=== PATIENT | male | born 1945 | race Caucasian/White ===

== ENCOUNTER 2021-01-01 18:16 | Inpatient (IN) | payer MEDICARE ==
[~2021-01-01] VITALS: Ht 177.8 cm; Wt 58.6 kg
[2021-01-01 19:51] LABS: BASOPHILS # (AUTO) 0.1 X10'3 (0-0.2); BASOPHILS % (AUTO) 0.7 % (0-1); EOSINOPHILS # (AUTO) 0.3 X10'3 (0-0.9); EOSINOPHILS % (AUTO) 3.5 % (0-6); HEMATOCRIT 27.1 % (42.0-52.0); HEMOGLOBIN 9.4 g/dl (14.0-17.9); LYMPHOCYTES # (AUTO) 0.5 X10'3 (1.1-4.8); LYMPHOCYTES % (AUTO) 5.8 % (21-51); MEAN CORPUSCULAR HEMOGLOBIN 30.1 PG (27.0-31.0); MEAN CORPUSCULAR HGB CONC 34.9 g/dL (33.0-36.5); MEAN CORPUSCULAR VOLUME 86.3 FL (78-98); MEAN PLATELET VOLUME 7.7 FL (7.4-10.4); MONOCYTES # (AUTO) 0.7 X10'3 (0-0.9); MONOCYTES % (AUTO) 7.6 % (2-12); NEUTROPHILS # (AUTO) 7.5 X10'3 (1.8-7.7); NEUTROPHILS % (AUTO) 82.4 % (42-75); PLATELET COUNT 362 X10'3 (140-440); RED BLOOD COUNT 3.13 X10'6 (4.70-6.10); RED CELL DISTRIBUTION WIDTH 13.8 % (11.5-14.5); WHITE BLOOD COUNT 9.1 X10'3 (4.5-11.0)
[2021-01-01 19:53] LABS: ALANINE AMINOTRANSFERASE 25 U/L (12-78); ALBUMIN 3.6 G/DL (3.4-5.0); ALBUMIN/GLOBULIN RATIO 0.9 (1.1-1.5); ALKALINE PHOSPHATASE 459 IU/L (46-116); ANION GAP 11 (8-16); ASPARTATE AMINO TRANSFERASE 9 U/L (10-37); BILIRUBIN,TOTAL 0.5 MG/DL (0.1-1.0); BLOOD UREA NITROGEN 90 MG/DL (7-18); BUN/CREATININE RATIO 14.6 (5.4-32.0); CHLORIDE 92 MMOL/L (99-107); CREATININE 6.18 MG/DL (0.60-1.10); GLUCOSE 126 MG/DL (70-104); POTASSIUM 4.9 MMOL/L (3.5-5.1); SODIUM 133 MMOL/L (135-145); TOTAL CARBON DIOXIDE 30.4 MMOL/L (24-32); TOTAL PROTEIN 7.7 G/DL (6.4-8.2); eGFR 9 ML/MIN
[2021-01-01 19:57] LABS: CALCIUM 13.8 MG/DL (8.5-10.1)
[2021-01-01] MEDS ORDERED: normal saline 1000ml 1,000 ML IV ONE ×2 (20:35)
[2021-01-01 20:56] LABS: UA COLLECTION TYPE NON-SPECIFIED
[2021-01-01 20:57] LABS: CLARITY,URINE SLIGHTLY CLOUDY (Clear); COLOR,URINE STRAW (Yellow); GLUCOSE, URINE NEGATIVE (Neg); KETONES,URINE NEGATIVE (Neg); LEUKOCYTE ESTERASE ,URINE NEGATIVE (Neg); NITRITES, URINE NEGATIVE (Neg); OCCULT BLOOD,URINE NEGATIVE (Neg); PH,URINE 7.5 (4.8-8.0); PROTEIN,URINE 30 mg/dl (Neg); UROBILINOGEN,URINE 0.2 E.U/dL (0.2-1.0)
[2021-01-01 21:01] LABS: MUCUS STRANDS FEW /LPF (Neg); SQUAMOUS EPITHELIAL CELL,UR FEW /LPF (FEW)
[2021-01-01 21:02] LABS: AMORPHOUS PHOSPHATES 3+
[2021-01-01 21:03] LABS: RBC,URINE 0-2 /HPF (0-2)
[2021-01-01 21:04] LABS: BACTERIA,URINE FEW /HPF (Neg)
[2021-01-01 23:15] LABS: PHOSPHORUS 5.4 MG/DL (2.3-4.5)
[2021-01-01] MEDS ORDERED: potassium Cl 40MEQ/1/2NS 520ml 520 ML IV PRN ×2 (23:20)
[2021-01-01] MEDS ORDERED: ondansetron/PF 4mg/2ml inj IV PRN (23:20)
[2021-01-01] MEDS ORDERED: acetaminophen 325mg tablet PO PRN (23:20)
[2021-01-01] MEDS ORDERED: potassium Cl 20 mEq SR tablet PO PRN ×2 (23:20)
[2021-01-02] MEDS: normal saline 1000ml 1,000 ML IV SCH ×3 (00:05→20:52)
[2021-01-02 04:26] LABS: BASOPHILS # (AUTO) 0.1 X10'3 (0-0.2); BASOPHILS % (AUTO) 0.9 % (0-1); EOSINOPHILS # (AUTO) 0.4 X10'3 (0-0.9); EOSINOPHILS % (AUTO) 5.6 % (0-6); HEMATOCRIT 24.5 % (42.0-52.0); HEMOGLOBIN 8.4 g/dl (14.0-17.9); LYMPHOCYTES # (AUTO) 0.6 X10'3 (1.1-4.8); MEAN CORPUSCULAR HEMOGLOBIN 29.7 PG (27.0-31.0); MEAN CORPUSCULAR HGB CONC 34.2 g/dL (33.0-36.5); MEAN CORPUSCULAR VOLUME 86.8 FL (78-98); MEAN PLATELET VOLUME 7.5 FL (7.4-10.4); MONOCYTES # (AUTO) 0.7 X10'3 (0-0.9); MONOCYTES % (AUTO) 9.3 % (2-12); NEUTROPHILS % (AUTO) 76.2 % (42-75); PLATELET COUNT 295 X10'3 (140-440); RED BLOOD COUNT 2.82 X10'6 (4.70-6.10); RED CELL DISTRIBUTION WIDTH 13.7 % (11.5-14.5); WHITE BLOOD COUNT 7.8 X10'3 (4.5-11.0)
[2021-01-02 05:04] LABS: ALANINE AMINOTRANSFERASE 19 U/L (12-78); ALBUMIN/GLOBULIN RATIO 0.9 (1.1-1.5); ALKALINE PHOSPHATASE 458 IU/L (46-116); ANION GAP 10 (8-16); ASPARTATE AMINO TRANSFERASE 11 U/L (10-37); BILIRUBIN,TOTAL 0.4 MG/DL (0.1-1.0); BLOOD UREA NITROGEN 86 MG/DL (7-18); BUN/CREATININE RATIO 14.3 (5.4-32.0); CHLORIDE 99 MMOL/L (99-107); GLUCOSE 96 MG/DL (70-104); POTASSIUM 4.3 MMOL/L (3.5-5.1); SODIUM 136 MMOL/L (135-145); TOTAL CARBON DIOXIDE 26.9 MMOL/L (24-32); TOTAL PROTEIN 6.4 G/DL (6.4-8.2); eGFR 9 ML/MIN
[2021-01-02 05:09] LABS: CALCIUM 12.4 MG/DL (8.5-10.1)
[2021-01-02] MEDS: heparin, porcine 5000 units/ml vial SQ SCH ×2 (08:00→20:47)
[2021-01-02] MEDS ORDERED: PERFLUTREN PROTEIN-A MICROSPHR (Optison) 0.22 MG/ML 3ML VIAL IV ONE (08:00)
[2021-01-02] MEDS: K and/or MAG REPLACEMENT MC SCH ×2 (08:00→20:00)
[2021-01-02] MEDS ORDERED: magnesium 4gm in 100ml NS 100 ML IV PRN (09:20)
[2021-01-02] MEDS ORDERED: magnesium Cl slow-release 64mg tablet PO PRN (09:20)
[2021-01-02] MEDS ORDERED: NO HOME MEDS (11:51)
--- NOTE | 2021-01-02 14:59 | NUR ---
patient arrived from ED to PCU at 1 pm on a gurney accompanied by a staff nurse. patient was alert and oriented x 4 with stable virtal signs. patient has a right PIV on AC , flushed and patent. patient has a arteaga for a retention, clear yellow urine is draining , patient is on tele number 2 sinus rythm. patient was oriented to room and equipment , patient demonstrate how to use a call greer
--- NOTE | 2021-01-02 16:57 | NUR ---
Malnutrition consult: Pt reports 2-13 lb wt loss with decreased appetite per malnutrition risk screen with RN. Current documented wt is not scaled and pt with no wt hx in EMR. Per MD documentation pt usually very active however has had decreased energy over the last month with reported 4 lb wt loss per H&P. If pt truly lost this wt this would be non-significant wt loss of 3% in one month. Pt on a vegetarian diet documented with 50-75% PO intake first meal. Per ED report pt appears well developed well nourished and no edema. Pt currently lacks a minimum of two criteria for malnutrition. Will continue to follow and monitor qualifying criteria. Addendum: 01/02/21 at 1658 by Maria Del Carmen Hern[address]es RD Amended: Links added.
[2021-01-02 18:00] VITALS: BP 149/68
[2021-01-02] MEDS ORDERED: K and/or MAG REPLACEMENT MC SCH (20:00)
[2021-01-02 22:00] VITALS: BP 129/57
[2021-01-03 01:00] VITALS: BP 142/65
[2021-01-03] MEDS: normal saline 1000ml 1,000 ML IV SCH ×4 (03:01→19:49)
[2021-01-03 06:00] VITALS: BP 134/69
--- NOTE | 2021-01-03 06:35 | NUR ---
Problems reprioritized. Patient report given, questions answered & plan of care reviewed with ANASTACIA Mace.
[2021-01-03 06:47] LABS: BASOPHILS # (AUTO) 0.1 X10'3 (0-0.2); BASOPHILS % (AUTO) 1.3 % (0-1); EOSINOPHILS # (AUTO) 0.4 X10'3 (0-0.9); EOSINOPHILS % (AUTO) 6.7 % (0-6); HEMATOCRIT 22.6 % (42.0-52.0); HEMOGLOBIN 7.7 g/dl (14.0-17.9); LYMPHOCYTES # (AUTO) 0.7 X10'3 (1.1-4.8); LYMPHOCYTES % (AUTO) 11.3 % (21-51); MEAN CORPUSCULAR HGB CONC 34.3 g/dL (33.0-36.5); MEAN CORPUSCULAR VOLUME 87.6 FL (78-98); MEAN PLATELET VOLUME 7.5 FL (7.4-10.4); MONOCYTES # (AUTO) 0.5 X10'3 (0-0.9); MONOCYTES % (AUTO) 8.5 % (2-12); NEUTROPHILS # (AUTO) 4.5 X10'3 (1.8-7.7); NEUTROPHILS % (AUTO) 72.2 % (42-75); PLATELET COUNT 285 X10'3 (140-440); RED BLOOD COUNT 2.58 X10'6 (4.70-6.10); WHITE BLOOD COUNT 6.2 X10'3 (4.5-11.0)
[2021-01-03 07:15] LABS: ALANINE AMINOTRANSFERASE 20 U/L (12-78); ALBUMIN 2.8 G/DL (3.4-5.0); ALBUMIN/GLOBULIN RATIO 0.9 (1.1-1.5); ALKALINE PHOSPHATASE 516 IU/L (46-116); ANION GAP 11 (8-16); ASPARTATE AMINO TRANSFERASE 9 U/L (10-37); BILIRUBIN,TOTAL 0.4 MG/DL (0.1-1.0); BLOOD UREA NITROGEN 76 MG/DL (7-18); BUN/CREATININE RATIO 13.2 (5.4-32.0); CALCIUM 11.4 MG/DL (8.5-10.1); CHLORIDE 105 MMOL/L (99-107); CREATININE 5.74 MG/DL (0.60-1.10); FERRITIN 198 NG/ML (26-388); GLUCOSE 91 MG/DL (70-104); LACTATE DEHYDROGENASE 103 U/L (85-227); PHOSPHORUS 4.9 MG/DL (2.3-4.5); SODIUM 140 MMOL/L (135-145); TOTAL CARBON DIOXIDE 24.3 MMOL/L (24-32); eGFR 10 ML/MIN
[2021-01-03] MEDS: K and/or MAG REPLACEMENT MC SCH ×2 (08:00→20:00)
[2021-01-03] MEDS: heparin, porcine 5000 units/ml vial SQ SCH ×2 (09:24→20:00)
[2021-01-03 09:40] LABS: IMMUNOGLOBULIN A, QN, SERUM 156 mg/dL (61-437); IMMUNOGLOBULIN G, QN, SERUM 997 mg/dL (603-1613); IMMUNOGLOBULIN M, QN, SERUM 109 mg/dL (15-143)
[2021-01-03 11:00] VITALS: BP 149/70
[2021-01-03 11:51] LABS: % IRON SATURATION 22 % (11-46); IRON 50 UG/DL (53-167); TOTAL IRON BINDING CAPACITY 225 UG/DL (259-388)
[2021-01-03 11:57] LABS: RHEUM FACTOR QUAL REFLEX TITER NEGATIVE (Neg)
[2021-01-03 15:00] VITALS: BP 167/74
--- NOTE | 2021-01-03 18:24 | NUR ---
Problems reprioritized. Patient report given, questions answered & plan of care reviewed with Wendy GALAVIZ.
[2021-01-03 23:00] VITALS: BP 152/74
[2021-01-04 06:10] LABS: BASOPHILS # (AUTO) 0.1 X10'3 (0-0.2); EOSINOPHILS # (AUTO) 0.4 X10'3 (0-0.9); EOSINOPHILS % (AUTO) 6.1 % (0-6); HEMOGLOBIN 7.4 g/dl (14.0-17.9); LYMPHOCYTES # (AUTO) 0.8 X10'3 (1.1-4.8); LYMPHOCYTES % (AUTO) 10.8 % (21-51); MEAN CORPUSCULAR HEMOGLOBIN 30.4 PG (27.0-31.0); MEAN CORPUSCULAR HGB CONC 34.5 g/dL (33.0-36.5); MEAN CORPUSCULAR VOLUME 88.1 FL (78-98); MEAN PLATELET VOLUME 7.5 FL (7.4-10.4); MONOCYTES # (AUTO) 0.6 X10'3 (0-0.9); MONOCYTES % (AUTO) 8.2 % (2-12); NEUTROPHILS # (AUTO) 5.3 X10'3 (1.8-7.7); NEUTROPHILS % (AUTO) 73.9 % (42-75); PLATELET COUNT 269 X10'3 (140-440); RED BLOOD COUNT 2.42 X10'6 (4.70-6.10); RED CELL DISTRIBUTION WIDTH 14.1 % (11.5-14.5); WHITE BLOOD COUNT 7.1 X10'3 (4.5-11.0)
[2021-01-04 06:20] LABS: HEMATOCRIT 21.4 % (42.0-52.0)
[2021-01-04 06:39] LABS: ALANINE AMINOTRANSFERASE 18 U/L (12-78); ALBUMIN 2.7 G/DL (3.4-5.0); ALBUMIN/GLOBULIN RATIO 0.9 (1.1-1.5); ALKALINE PHOSPHATASE 547 IU/L (46-116); ANION GAP 9 (8-16); ASPARTATE AMINO TRANSFERASE 10 U/L (10-37); BILIRUBIN,TOTAL 0.3 MG/DL (0.1-1.0); BLOOD UREA NITROGEN 67 MG/DL (7-18); BUN/CREATININE RATIO 13.3 (5.4-32.0); CALCIUM 10.9 MG/DL (8.5-10.1); CHLORIDE 106 MMOL/L (99-107); CREATININE 5.05 MG/DL (0.60-1.10); GLUCOSE 94 MG/DL (70-104); MAGNESIUM 2.6 MG/DL (1.5-2.4); PHOSPHORUS 4.4 MG/DL (2.3-4.5); POTASSIUM 4.1 MMOL/L (3.5-5.1); SODIUM 139 MMOL/L (135-145); TOTAL CARBON DIOXIDE 24.1 MMOL/L (24-32); TOTAL PROTEIN 5.8 G/DL (6.4-8.2); eGFR 11 ML/MIN
[2021-01-04 07:00] VITALS: BP 141/74
[2021-01-04] MEDS: heparin, porcine 5000 units/ml vial SQ SCH ×2 (08:00→20:02)
[2021-01-04] MEDS: K and/or MAG REPLACEMENT MC SCH ×2 (08:00→20:00)
[2021-01-04] MEDS: normal saline 1000ml 1,000 ML IV SCH ×3 (09:09→22:29)
[2021-01-04 11:00] VITALS: BP 137/69
[2021-01-04 11:01] LABS: OCCULT BLOOD STOOL NEGATIVE (Neg)
[2021-01-04 12:36] LABS: COMPLEMENT C3, SERUM 103 mg/dL (82-167); COMPLEMENT C4, SERUM 26 mg/dL (12-38); HBSAG SCREEN Negative (Negative); HEPATITIS C ANTIBODY <0.1 s/co ratio (0.0-0.9)
[2021-01-04 14:51] LABS: TOTAL PROTEIN,URINE RANDOM 31.6 MG/DL
[2021-01-04 20:00] VITALS: BP 161/79
[2021-01-05 06:00] VITALS: BP 158/87
[2021-01-05 07:06] LABS: BASOPHILS # (AUTO) 0.1 X10'3 (0-0.2); BASOPHILS % (AUTO) 1.1 % (0-1); EOSINOPHILS # (AUTO) 0.4 X10'3 (0-0.9); EOSINOPHILS % (AUTO) 6.9 % (0-6); HEMOGLOBIN 7.1 g/dl (14.0-17.9); LYMPHOCYTES # (AUTO) 0.6 X10'3 (1.1-4.8); LYMPHOCYTES % (AUTO) 9.4 % (21-51); MEAN CORPUSCULAR HEMOGLOBIN 29.8 PG (27.0-31.0); MEAN CORPUSCULAR HGB CONC 33.6 g/dL (33.0-36.5); MEAN CORPUSCULAR VOLUME 88.7 FL (78-98); MEAN PLATELET VOLUME 7.5 FL (7.4-10.4); MONOCYTES # (AUTO) 0.5 X10'3 (0-0.9); MONOCYTES % (AUTO) 8.1 % (2-12); NEUTROPHILS # (AUTO) 4.8 X10'3 (1.8-7.7); NEUTROPHILS % (AUTO) 74.5 % (42-75); PLATELET COUNT 270 X10'3 (140-440); RED BLOOD COUNT 2.38 X10'6 (4.70-6.10); WHITE BLOOD COUNT 6.5 X10'3 (4.5-11.0)
[2021-01-05 07:19] LABS: HEMATOCRIT 21.1 % (42.0-52.0)
[2021-01-05 07:33] LABS: ALANINE AMINOTRANSFERASE 20 U/L (12-78); ALBUMIN 2.4 G/DL (3.4-5.0); ALBUMIN/GLOBULIN RATIO 0.8 (1.1-1.5); ALKALINE PHOSPHATASE 552 IU/L (46-116); ANION GAP 12 (8-16); ASPARTATE AMINO TRANSFERASE 12 U/L (10-37); BILIRUBIN,TOTAL 0.3 MG/DL (0.1-1.0); BLOOD UREA NITROGEN 57 MG/DL (7-18); BUN/CREATININE RATIO 13.3 (5.4-32.0); CALCIUM 10.1 MG/DL (8.5-10.1); CHLORIDE 108 MMOL/L (99-107); GLUCOSE 90 MG/DL (70-104); MAGNESIUM 2.1 MG/DL (1.5-2.4); POTASSIUM 3.9 MMOL/L (3.5-5.1); SODIUM 140 MMOL/L (135-145); TOTAL CARBON DIOXIDE 20.4 MMOL/L (24-32); TOTAL PROTEIN 5.5 G/DL (6.4-8.2); eGFR 13 ML/MIN
--- NOTE | 2021-01-05 07:34 | NUR ---
DR. CHEN PAGED: Tyrel Catalan [id number]: CRITICAL HCT OF 21.1. DOWN FROM 21.4 ON 01/04. HGB OF 7.1 DOWN FROM 7.4 ON 01/04. [id number]
[2021-01-05] MEDS: K and/or MAG REPLACEMENT MC SCH ×2 (08:00→20:00)
[2021-01-05] MEDS: normal saline 1000ml 1,000 ML IV SCH ×3 (08:53→18:29)
[2021-01-05] MEDS: heparin, porcine 5000 units/ml vial SQ SCH ×2 (08:54→20:00)
[2021-01-05] MEDS: sodium ferric gluc complex inj 125 MG in normal saline 100ml IV soln 90 ML IV SCH (10:13)
[2021-01-05 11:00] VITALS: BP 158/78
[2021-01-05] MEDS ORDERED: EPOETIN ALFA-EPBX 20,000 UNIT/ML 1 ML MDV SQ ONE (12:05)
[2021-01-05 15:00] VITALS: BP 162/74
[2021-01-05 15:53] LABS: A/G RATIO 1.3 (0.7-1.7); ALBUMIN 2.9 g/dL (2.9-4.4); ANTINUCLEAR ANTIBODIES Negative (Negative); BETA GLOBULIN 0.7 g/dL (0.7-1.3); GAMMA GLOBULIN 0.8 g/dL (0.4-1.8); GLOBULIN, TOTAL 2.3 g/dL (2.2-3.9); M-SPIKE Not Observed g/dL (Not Observed); PROTEIN, TOTAL, SERUM 5.2 g/dL (6.0-8.5)
[2021-01-05 18:00] VITALS: BP 171/96
[2021-01-05 22:00] VITALS: BP 162/70
[2021-01-05 22:30] LABS: ANGIOTESIN-CONVERTING ENZYME 39 U/L (14-82)
[2021-01-06] MEDS: normal saline 1000ml 1,000 ML IV SCH ×4 (01:09→21:09)
[2021-01-06 02:00] VITALS: BP 154/78
[2021-01-06 06:00] VITALS: BP 149/78
[2021-01-06 06:15] LABS: BASOPHILS # (AUTO) 0.1 X10'3 (0-0.2); BASOPHILS % (AUTO) 1.2 % (0-1); EOSINOPHILS # (AUTO) 0.4 X10'3 (0-0.9); EOSINOPHILS % (AUTO) 6.3 % (0-6); HEMATOCRIT 22.1 % (42.0-52.0); HEMOGLOBIN 7.4 g/dl (14.0-17.9); LYMPHOCYTES # (AUTO) 0.7 X10'3 (1.1-4.8); MEAN CORPUSCULAR HEMOGLOBIN 29.9 PG (27.0-31.0); MEAN CORPUSCULAR HGB CONC 33.4 g/dL (33.0-36.5); MEAN CORPUSCULAR VOLUME 89.5 FL (78-98); MEAN PLATELET VOLUME 7.6 FL (7.4-10.4); MONOCYTES # (AUTO) 0.5 X10'3 (0-0.9); MONOCYTES % (AUTO) 8.4 % (2-12); NEUTROPHILS # (AUTO) 4.8 X10'3 (1.8-7.7); NEUTROPHILS % (AUTO) 73.1 % (42-75); PLATELET COUNT 267 X10'3 (140-440); RED BLOOD COUNT 2.47 X10'6 (4.70-6.10); RED CELL DISTRIBUTION WIDTH 13.9 % (11.5-14.5); WHITE BLOOD COUNT 6.5 X10'3 (4.5-11.0)
[2021-01-06 06:48] LABS: ALANINE AMINOTRANSFERASE 19 U/L (12-78); ALBUMIN 2.5 G/DL (3.4-5.0); ALBUMIN/GLOBULIN RATIO 0.8 (1.1-1.5); ALKALINE PHOSPHATASE 611 IU/L (46-116); ANION GAP 14 (8-16); ASPARTATE AMINO TRANSFERASE 11 U/L (10-37); BILIRUBIN,TOTAL 0.3 MG/DL (0.1-1.0); BLOOD UREA NITROGEN 53 MG/DL (7-18); BUN/CREATININE RATIO 13.4 (5.4-32.0); CHLORIDE 109 MMOL/L (99-107); CREATININE 3.97 MG/DL (0.60-1.10); GLUCOSE 91 MG/DL (70-104); PHOSPHORUS 3.9 MG/DL (2.3-4.5); POTASSIUM 3.7 MMOL/L (3.5-5.1); SODIUM 143 MMOL/L (135-145); TOTAL CARBON DIOXIDE 20.3 MMOL/L (24-32); TOTAL PROTEIN 5.8 G/DL (6.4-8.2); eGFR 15 ML/MIN
[2021-01-06] MEDS: heparin, porcine 5000 units/ml vial SQ SCH ×2 (08:00→19:59)
[2021-01-06] MEDS: K and/or MAG REPLACEMENT MC SCH ×2 (08:00→20:00)
[2021-01-06] MEDS: sodium ferric gluc complex inj 125 MG in normal saline 100ml IV soln 90 ML IV SCH (08:51)
[2021-01-06 11:00] VITALS: BP 157/81
--- NOTE | 2021-01-06 14:20 | NUR ---
Initial: Pt admit DX YANIRA w/ severe dehydration, hypercalcemia, metabolic acidosis per EMR. Pt refusing oral rehydration methods so receiving IVF per MD note. Currently on vegetarian diet w/ vegan items per pt preferences PO 75-100% past three improving from initial ~43% past 3 days. Pt has vegan snacks at bedside consuming as well per RN today. Likely meeting minimum estimated needs at this time. LBM 01/04. Will continue to monitor. Rec: 1. continue vegetarian(vegan) diet per pt preferences 2. routine bowel care 3. scaled wt this admit; subsequent weekly wts Addendum: 01/06/21 at [address] Amended: Links added.
[2021-01-06] MEDS ORDERED: EPOETIN ALFA-EPBX 20,000 UNIT/ML 1 ML MDV SQ ONE (15:50)
[2021-01-06 17:23] VITALS: BP 165/83
[2021-01-06 18:00] VITALS: BP 168/88
--- NOTE | 2021-01-06 18:45 | NUR ---
Report received. patient is stable resting in bed. and daughter at bedside. Patient verbally consented to release lab report and recent diagnostics testing to his daughter. Per charge nurse Kimberley it is also okay to release information as long as patient consents.
[2021-01-06 22:00] VITALS: BP 153/80
[2021-01-07 02:00] VITALS: BP 165/86
[2021-01-07] MEDS: normal saline 1000ml 1,000 ML IV SCH ×2 (03:49→11:21)
[2021-01-07 06:00] VITALS: BP 150/85
[2021-01-07] MEDS: K and/or MAG REPLACEMENT MC SCH (08:00)
[2021-01-07 08:22] LABS: BASOPHILS # (AUTO) 0.1 X10'3 (0-0.2); BASOPHILS % (AUTO) 0.9 % (0-1); EOSINOPHILS # (AUTO) 0.3 X10'3 (0-0.9); EOSINOPHILS % (AUTO) 3.7 % (0-6); HEMOGLOBIN 7.3 g/dl (14.0-17.9); LYMPHOCYTES # (AUTO) 0.9 X10'3 (1.1-4.8); LYMPHOCYTES % (AUTO) 11.1 % (21-51); MEAN CORPUSCULAR HEMOGLOBIN 29.8 PG (27.0-31.0); MEAN CORPUSCULAR HGB CONC 34.2 g/dL (33.0-36.5); MEAN CORPUSCULAR VOLUME 87.2 FL (78-98); MEAN PLATELET VOLUME 7.5 FL (7.4-10.4); MONOCYTES # (AUTO) 0.6 X10'3 (0-0.9); NEUTROPHILS % (AUTO) 76.3 % (42-75); PLATELET COUNT 261 X10'3 (140-440); RED BLOOD COUNT 2.45 X10'6 (4.70-6.10); WHITE BLOOD COUNT 7.9 X10'3 (4.5-11.0)
[2021-01-07 08:35] LABS: HEMATOCRIT 21.4 % (42.0-52.0)
[2021-01-07 08:45] LABS: ALANINE AMINOTRANSFERASE 17 U/L (12-78); ALBUMIN 2.6 G/DL (3.4-5.0); ALBUMIN/GLOBULIN RATIO 0.8 (1.1-1.5); ALKALINE PHOSPHATASE 629 IU/L (46-116); ANION GAP 14 (8-16); ASPARTATE AMINO TRANSFERASE 11 U/L (10-37); BILIRUBIN,TOTAL 0.3 MG/DL (0.1-1.0); BLOOD UREA NITROGEN 44 MG/DL (7-18); BUN/CREATININE RATIO 12.5 (5.4-32.0); CALCIUM 9.1 MG/DL (8.5-10.1); CHLORIDE 109 MMOL/L (99-107); CREATININE 3.53 MG/DL (0.60-1.10); GLUCOSE 91 MG/DL (70-104); MAGNESIUM 1.8 MG/DL (1.5-2.4); PHOSPHORUS 3.2 MG/DL (2.3-4.5); POTASSIUM 3.5 MMOL/L (3.5-5.1); SODIUM 143 MMOL/L (135-145); TOTAL CARBON DIOXIDE 19.7 MMOL/L (24-32); eGFR 17 ML/MIN
--- NOTE | 2021-01-07 08:55 | NUR ---
DR. CHEN PAGED: Tyrel Cooper [id number]: CRITICAL HCT OF 21.4, DOWN FROM 22.1 ON 01/06. [id number].
[2021-01-07] MEDS: heparin, porcine 5000 units/ml vial SQ SCH (09:04)
[2021-01-07] MEDS: sodium ferric gluc complex inj 125 MG in normal saline 100ml IV soln 90 ML IV SCH (10:08)
[2021-01-07 11:00] VITALS: BP 148/83
--- NOTE | 2021-01-07 11:24 | NUR ---
DR. CHEN PAGED: Tyrel Cooper [id number]: DR. GINGER GOLDEN'Swathi DISCHARGE, PHYSICAL THERAPY WALKED PT. WAITING FOR THEIR NOTES
[2021-01-07] MEDS ORDERED: ASCO500C18 PO (12:43)
[2021-01-07] MEDS ORDERED: FERR325T28 PO (12:43)
[2021-01-07 15:00] VITALS: BP 174/95
--- NOTE | 2021-01-07 15:35 | NUR ---
PT STABLE FOR DISCHARGE PER MD ORDERS. ALL DISCHARGE INSTRUCTIONS REVIEWED WITH PATIENT AND ALL QUESTIONS ANSWERED. PT WILL MAKE OWN FOLLOW UP WITH PCP. NEW RX'S E-SCRIPTED TO [facility] IN [place]. LEG BAG FOR MONTALVO CATH PLACED AND PT EDUCATED ON DRAINING OF BAG WITH SPOUSE AT BEDSIDE. PIV DISCONTINUED, CANNULA INTACT. SHIRT HEMMER DISCONTINUED. ALL BELONGINGS COLLECTED AND SENT WITH PT. PATIENT WAS WHEELED TO FRONT OF LOBBY WHERE PRIVATE VEHICLE WAITED.
[2021-01-07] MEDS ORDERED: tamsulosin 0.4mg capsule PO SCH (21:00)
[2021-01-08 15:51] LABS: ALPHA-1-GLOBULIN,UR 13.9 % (.); ALPHA-2-GLOBULIN,UR 18.6 % (.); GAMMA GLOBULIN,UR 14.4 % (.); PROTEIN,TOTAL,URINE 13.5 mg/dL (Not Estab.)
== END 2021-01-07 15:35 | disposition home health service (06) | DRG 683 ==
LOC: ER 18:16 → ED HOLD 23:21 → PCU 3S 01-02 14:04
PROVIDERS: ADMIT Internal Medicine; ATTEND Family Medicine
PROC: CP1 Nuclear Medicine, Musculoskeletal System, Planar Nuclear Medicine Imaging (ICD-10-PCS; principal; 2021-01-05)
DX: N17.9 Acute kidney failure, unspecified (principal); E87.3 Alkalosis; E86.0 Dehydration; E83.52 Hypercalcemia; I35.0 Nonrheumatic aortic (valve) stenosis; M45.9 Ankylosing spondylitis of unspecified sites in spine; N13.9 Obstructive and reflux uropathy, unspecified; N18.9 Chronic kidney disease, unspecified; D63.1 Anemia in chronic kidney disease; N40.1 Benign prostatic hyperplasia with lower urinary tract symptoms; R33.8 Other retention of urine; G89.29 Other chronic pain; Z20.822 Contact with and (suspected) exposure to COVID-19; Z88.2 Allergy status to sulfonamides
CPT/HCPCS: 36415; 71045; 76770; 78306; 80053; 81001; 82164; 82272; 82330; 82570; 82728; 82784; 83540; 83550; 83615; 83735; 83970; 84075; 84080; 84100; 84153; 84155; 84156; 84165; 84166; 84540; 85025; 85651; 85999; 86038; 86160; 86334; 86430; 86592; 86803; 87081; 87207; 87340; 87635; 88184; 88185; 96360; 96361; 97161; 97530; 99285; A9503; G0378; J1644; J2916; J7030; Q4081

== ENCOUNTER 2022-11-30 14:27 | Day surgery (SDC) | payer MEDICARE ==
[2022-11-26 13:58] LABS: BASOPHILS # (AUTO) 0.1 X10'3 (0-0.2); BASOPHILS % (AUTO) 1.4 % (0-1); EOSINOPHILS # (AUTO) 0.1 X10'3 (0-0.9); EOSINOPHILS % (AUTO) 2.2 % (0-6); HEMATOCRIT 36.7 % (42.0-52.0); LYMPHOCYTES # (AUTO) 0.7 X10'3 (1.1-4.8); LYMPHOCYTES % (AUTO) 15.8 % (21-51); MEAN CORPUSCULAR HEMOGLOBIN 29.1 PG (27.0-31.0); MEAN CORPUSCULAR HGB CONC 32.6 g/dL (33.0-36.5); MEAN CORPUSCULAR VOLUME 89.1 FL (78-98); MEAN PLATELET VOLUME 7.8 FL (7.4-10.4); MONOCYTES # (AUTO) 0.5 X10'3 (0-0.9); MONOCYTES % (AUTO) 10.5 % (2-12); NEUTROPHILS # (AUTO) 3.3 X10'3 (1.8-7.7); NEUTROPHILS % (AUTO) 70.1 % (42-75); PLATELET COUNT 214 X10'3 (140-440); RED BLOOD COUNT 4.12 X10'6 (4.70-6.10); RED CELL DISTRIBUTION WIDTH 14.8 % (11.5-14.5); WHITE BLOOD COUNT 4.7 X10'3 (4.5-11.0)
[2022-11-26 14:06] LABS: APTT 29 SECONDS (22-32); PROTHROMBIN TIME 11.1 SECONDS (9.0-12.0)
[2022-11-26 14:07] LABS: ALBUMIN 3.6 G/DL (3.4-5.0); ANION GAP 5 (8-16); BLOOD UREA NITROGEN 26 MG/DL (7-18); CALCIUM 9.2 MG/DL (8.5-10.1); CHLORIDE 102 MMOL/L (99-107); CHOL/HDL RATIO 3.1 (0.00-4.99); CHOLESTEROL 151 MG/DL (0-200); CREATININE 1.04 MG/DL (0.60-1.10); GLUCOSE 100 MG/DL (70-104); HDL CHOLESTEROL 49 MG/DL (35-60); LDL CHOLESTEROL 91 MG/DL (50-100); POTASSIUM 4.2 MMOL/L (3.5-5.1); SODIUM 139 MMOL/L (135-145); TOTAL CARBON DIOXIDE 31.6 MMOL/L (24-32); TRIGLYCERIDES 66 MG/DL (20-135); eGFR 69 ML/MIN
[~2022-11-30] VITALS: Ht 177.8 cm; Wt 60.6 kg
[2022-11-30] VITALS (7 sets, daily range): BP systolic 140–167; BP diastolic 65–90; PULSE 63–76; RESP 14–16; TEMP 97.5; O2SAT 98–100
[~2022-11-30 14:27] MED LIST: ASCO500C18 PO
[2022-11-30] MEDS ORDERED: diphenhydrAMINE 25mg capsule PO PRN (14:45)
[2022-11-30] MEDS ORDERED: normal saline 1,000 ML IV SCH (14:45)
[2022-11-30] MEDS ORDERED: LORazepam 0.5 MG tablet PO PRN (14:45)
[2022-11-30] MEDS ORDERED: CHOL1LIQ PO (14:54)
[2022-11-30] MEDS ORDERED: ZALE5CAP2 PO (14:54)
[2022-11-30] MEDS ORDERED: CURC500C PO (14:54)
[2022-11-30] MEDS ORDERED: FERR236T3 PO (14:55)
[2022-11-30] MEDS ORDERED: CYAN250010 PO (14:55)
[2022-11-30] MEDS ORDERED: midazolam 1 mg/ML 2ml injection ONE (15:41)
[2022-11-30] MEDS ORDERED: LIDOcaine 1% (10mg/ml) 2ml vial ONE (15:41)
[2022-11-30] MEDS ORDERED: fentaNYL/PF 50MCG/1 ML 2ML syringe ONE (15:41)
[2022-11-30] MEDS ORDERED: verapamil 2.5 mg/ml inj IV ONE (15:41)
[2022-11-30] MEDS ORDERED: iohexol 350MG/ML 100ml bottle IV ONE (15:42)
[2022-11-30] MEDS ORDERED: heparin 1,000unit/ml 10ml vial 10 ML ONE (15:42)
[2022-11-30] MEDS ORDERED: nitroGLYCERIN 500mcg/5mL D5W 5 ML IV ONE (16:10)
[2022-11-30] MEDS ORDERED: normal saline 1000ml 1,000 ML IV SCH (17:25)
[2022-12-01 07:12] LABS: ISTAT HGB ART 11.2 g/dl (14.0-17.9); ISTAT Hct ART 33 %PCV (42-52); ISTAT O2 SATURATION ARTERIAL 97 % (95-98); ISTAT SOURCE ART
[2022-12-01 07:14] LABS: ISTAT HGB MIX 11.2 g/dl (14.0-17.9); ISTAT Hct MIX 33 %PCV (42-52); ISTAT O2 SATURATION MIX VENOUS 74 % (60-80); ISTAT SOURCE VEN
== END 2022-11-30 19:10 | disposition home or self-care (01) ==
LOC: SSTAY O 14:27
PROVIDERS: ATTEND Student in an Organized Health Care Education/Training Program
DX: I35.0 Nonrheumatic aortic (valve) stenosis (principal); I25.10 Atherosclerotic heart disease of native coronary artery without angina pectoris; I47.1 Supraventricular tachycardia; I65.23 Occlusion and stenosis of bilateral carotid arteries; M45.9 Ankylosing spondylitis of unspecified sites in spine; E78.49 Other hyperlipidemia; Z79.899 Other long term (current) drug therapy; Z88.8 Allergy status to other drugs, medicaments and biological substances
CPT/HCPCS: 36415; 80048; 80061; 82803; 85014; 85025; 85610; 85730; 93005; 93456; A6258; J1644; J2250; J3490; J7030; Q0163; Q9967; C1751; C1894; J3010

== ENCOUNTER 2022-12-08 12:11 | Outpatient (CLI) | payer MEDICARE ==
[~2022-12-08 12:11] MED LIST changes: -ASCO500C18 PO; +CHOL1LIQ PO; +CURC500C PO; +CYAN250010 PO; +FERR236T3 PO; +ZALE5CAP2 PO
[2022-12-08 12:44] LABS: BASOPHILS # (AUTO) 0.1 X10'3 (0-0.2); BASOPHILS % (AUTO) 1.2 % (0-1); EOSINOPHILS # (AUTO) 0.2 X10'3 (0-0.9); EOSINOPHILS % (AUTO) 2.9 % (0-6); HEMATOCRIT 37.4 % (42.0-52.0); HEMOGLOBIN 12.2 g/dl (14.0-17.9); LYMPHOCYTES # (AUTO) 0.8 X10'3 (1.1-4.8); LYMPHOCYTES % (AUTO) 12.9 % (21-51); MEAN CORPUSCULAR HEMOGLOBIN 29.1 PG (27.0-31.0); MEAN CORPUSCULAR HGB CONC 32.7 g/dL (33.0-36.5); MEAN CORPUSCULAR VOLUME 88.8 FL (78-98); MEAN PLATELET VOLUME 7.4 FL (7.4-10.4); MONOCYTES # (AUTO) 0.6 X10'3 (0-0.9); MONOCYTES % (AUTO) 10.8 % (2-12); NEUTROPHILS # (AUTO) 4.3 X10'3 (1.8-7.7); NEUTROPHILS % (AUTO) 72.2 % (42-75); PLATELET COUNT 249 X10'3 (140-440); RED BLOOD COUNT 4.21 X10'6 (4.70-6.10); RED CELL DISTRIBUTION WIDTH 15.2 % (11.5-14.5)
[2022-12-08 12:53] LABS: APTT 30 SECONDS (22-32)
[2022-12-08 13:01] LABS: ALANINE AMINOTRANSFERASE 26 U/L (12-78); ALBUMIN 3.7 G/DL (3.4-5.0); ALBUMIN/GLOBULIN RATIO 1.1 (1.1-1.5); ALKALINE PHOSPHATASE 69 IU/L (46-116); ANION GAP 7 (8-16); ASPARTATE AMINO TRANSFERASE 15 U/L (10-37); BILIRUBIN,TOTAL 0.5 MG/DL (0.1-1.0); BLOOD UREA NITROGEN 29 MG/DL (7-18); BUN/CREATININE RATIO 26.1 (10.0-20.0); CALCIUM 9.1 MG/DL (8.5-10.1); CHLORIDE 105 MMOL/L (99-107); CREATININE 1.11 MG/DL (0.60-1.10); GLUCOSE 103 MG/DL (70-104); POTASSIUM 4.4 MMOL/L (3.5-5.1); PRO BRAIN NATRIURETIC PEPTIDE 1646 PG/ML (0-450); SODIUM 138 MMOL/L (135-145); TOTAL CARBON DIOXIDE 25.7 MMOL/L (24-32); TOTAL PROTEIN 7.1 G/DL (6.4-8.2); eGFR 64 ML/MIN
[2022-12-08] MEDS ORDERED: IODIXANOL 320 MG/ML INFUS..BTL 100ML IV ONE (13:32)
[2022-12-08] MEDS ORDERED: albuterol 2.5 MG/3 ML nebule NEB ONE (14:40)
--- NOTE | 2022-12-08 15:08 | NUR ---
SVN not given. Pt. not able to perform PFT maneuvers due to back spasms
== END 2022-12-08 23:59 | disposition home or self-care (01) ==
LOC: RAD 12:11
PROVIDERS: ATTEND Internal Medicine Cardiovascular Disease
DX: I51.7 Cardiomegaly (principal); I70.0 Atherosclerosis of aorta; I25.10 Atherosclerotic heart disease of native coronary artery without angina pectoris; M85.88 Other specified disorders of bone density and structure, other site; I35.0 Nonrheumatic aortic (valve) stenosis; R06.02 Shortness of breath; I65.29 Occlusion and stenosis of unspecified carotid artery; K76.89 Other specified diseases of liver; Z96.642 Presence of left artificial hip joint
CPT/HCPCS: 36415; 71046; 71275; 74174; 75572; 80053; 83880; 85025; 85610; 85730; J3490; Q9967

== ENCOUNTER 2023-01-20 05:30 | Inpatient (IN) | payer MEDICARE ==
[2023-01-12 15:21] LABS: BILIRUBIN,URINE NEGATIVE (Neg); CLARITY,URINE SLIGHTLY CLOUDY (Clear); COLOR,URINE YELLOW (Yellow); GLUCOSE, URINE NEGATIVE (Neg); KETONES,URINE NEGATIVE (Neg); LEUKOCYTE ESTERASE ,URINE NEGATIVE (Neg); NITRITES, URINE NEGATIVE (Neg); OCCULT BLOOD,URINE NEGATIVE (Neg); PROTEIN,URINE NEGATIVE (Neg); UROBILINOGEN,URINE 0.2 E.U/dL (0.2-1.0)
[2023-01-12 15:27] LABS: BASOPHILS % (AUTO) 0.9 % (0-1); EOSINOPHILS # (AUTO) 0.1 X10'3 (0-0.9); EOSINOPHILS % (AUTO) 2.3 % (0-6); LYMPHOCYTES # (AUTO) 0.8 X10'3 (1.1-4.8); MEAN CORPUSCULAR HEMOGLOBIN 29.4 PG (27.0-31.0); MEAN CORPUSCULAR HGB CONC 33.1 g/dL (33.0-36.5); MEAN PLATELET VOLUME 8.1 FL (7.4-10.4); MONOCYTES # (AUTO) 0.5 X10'3 (0-0.9); NEUTROPHILS # (AUTO) 3.6 X10'3 (1.8-7.7); NEUTROPHILS % (AUTO) 70.8 % (42-75); PRE OP HEMATOCRIT 38.6 % (42.0-52.0); PRE OP HEMOGLOBIN 12.8 g/dL (14.0-17.9); PRE OP PLATELET COUNT 200 X10'3 (140-440); PRE OP WHITE BLOOD COUNT 5.1 10'3 (4.8-10.8); RED BLOOD COUNT 4.33 X10'6 (4.70-6.10); RED CELL DISTRIBUTION WIDTH 14.2 % (11.5-14.5)
[2023-01-12 15:28] LABS: UA COLLECTION TYPE CLN CATCH MIDSTREAM
[2023-01-12 15:29] LABS: BACTERIA,URINE FEW /HPF (Neg); SQUAMOUS EPITHELIAL CELL,UR MANY /LPF (FEW)
[2023-01-12 15:30] LABS: CAL OXALATE CRYSTALS FEW /HPF (NEGATIVE); RBC,URINE 0-2 /HPF (0-2); WBC,URINE 0-4 /HPF (0-4)
[2023-01-12 15:43] LABS: ALBUMIN 3.8 G/DL (3.4-5.0); ALBUMIN/GLOBULIN RATIO 1.2 (1.1-1.5); ALKALINE PHOSPHATASE 74 IU/L (46-116); BLOOD UREA NITROGEN 36 MG/DL (7-18); BUN/CREATININE RATIO 32.4 (10.0-20.0); CALCIUM 9.4 MG/DL (8.5-10.1); CHLORIDE 104 MMOL/L (99-107); CREATININE 1.11 MG/DL (0.60-1.10); PRE OP ALT 24 U/L (30-65); PRE OP ANION GAP 4 (8-16); PRE OP AST 14 U/L (10-37); PRE OP BILIRUB, TOTAL 0.4 MG/DL (0.0-1.0); PRE OP GLUCOSE 101 MG/DL (70-104); PRE OP POTASSIUM 4.5 MMOL/L (3.4-5.1); PRE OP SODIUM 137 MMOL/L (135-145); PRO BRAIN NATRIURETIC PEPTIDE 1694 PG/ML (0-450); TOTAL CARBON DIOXIDE 29.3 MMOL/L (24-32); eGFR 64 ML/MIN
[~2023-01-20] VITALS: Ht 170.2 cm; Wt 59.7 kg
[2023-01-20] VITALS (28 sets, daily range): BP systolic 99–159; BP diastolic 56–88; PULSE 61–97; RESP 9–22; TEMP 96.3–97.8; O2SAT 98–100
[~2023-01-20 05:30] MED LIST changes: -CURC500C PO; -CYAN250010 PO; -ZALE5CAP2 PO; +[UNRECOGNIZED DRUG - OTHER] PO; +aspirin 325mg tablet PO ONE; +cefazolin 2gm/D5W 100mL 100 ML IV ONE; +famotidine 20mg tablet PO ONE; +nitroPRUSSIDE (NIPRIDE) (200MCG/ML) 100ML Drip IV SCH; +ondansetron/PF 4mg/2ml inj IV PRN; +phenylephrine inj 50 MG in normal saline 250ml IV solN IV SCH; +ringers solution, lacted 1,000 ML IV SCH; +vancomycin/NS 1 GM in NS 250 ML IV ONE
[2023-01-20] MEDS ORDERED: protamine sulfate 10mg/ml inj. ONE (06:34)
[2023-01-20] MEDS ORDERED: iohexol 350MG/ML 100ml bottle IV ONE ×2 (06:38→08:13)
[2023-01-20] MEDS ORDERED: LIDOcaine 1% (10mg/ml)w/preservative inj. 20ml MDV ONE (06:38)
[2023-01-20] MEDS ORDERED: heparin 1,000 UNITS/NS 500ml 500 ML ONE ×2 (06:40→07:37)
[2023-01-20] MEDS ORDERED: LIDOcaine 1% (10mg/ml) 2ml vial ONE (06:51)
[2023-01-20] MEDS ORDERED: protamine sulf. 10mg/ml inj. IV ONE ×2 (07:00→07:08)
[2023-01-20] MEDS ORDERED: sevoflurane 250ml liquid IH ONE (07:08)
[2023-01-20] MEDS ORDERED: midazolam 1 mg/ML 2ml injection ONE (07:17)
[2023-01-20] MEDS ORDERED: fentaNYL/PF 50MCG/1 ML 2ML syringe ONE (07:17)
[2023-01-20] MEDS ORDERED: propofol inj 20 ML IV ONE (07:36)
[2023-01-20] MEDS ORDERED: heparin 1,000unit/ml 10ml vial 10 ML ONE (07:37)
[2023-01-20] MEDS ORDERED: ePHEDrine 50MG/ML INJ. ONE (07:37)
[2023-01-20] MEDS: FERROUS GLUCONATE PO SCH ×3 (08:00→21:00)
[2023-01-20] MEDS ORDERED: [UNRECOGNIZED DRUG - OTHER] PO SCH (08:00)
[2023-01-20] MEDS ORDERED: proCHLORperazine 10 MG/2 ml inj IV PRN ×2 (08:05→09:15)
[2023-01-20] MEDS ORDERED: morphine 4 MG/ML inj SYRINge IV PRN (08:05)
[2023-01-20] MEDS ORDERED: ringers solution, lacted 1,000 ML IV SCH (08:05)
[2023-01-20] MEDS ORDERED: meperidine/PF 25mg/ml syringe IV PRN ×3 (08:05)
[2023-01-20] MEDS ORDERED: ondansetron/PF 4mg/2ml inj IV PRN ×2 (08:05→09:15)
[2023-01-20] MEDS ORDERED: morphine 2 MG/ML inj. syringe IV PRN (08:05)
[2023-01-20] MEDS ORDERED: insulin regular, human 10 units/0.1 ml syringe SQ ONE (08:15)
[2023-01-20] MEDS ORDERED: magnesium 4gm in 100ml NS 100 ML IV PRN (09:15)
[2023-01-20] MEDS ORDERED: labetalol 20mg/4ml (5mg/ml) syringe IV PRN (09:15)
[2023-01-20] MEDS ORDERED: potassium Cl 20mEq/100mL bag 100 ML IV PRN (09:15)
[2023-01-20] MEDS ORDERED: potassium CL 10mEq/100ml bag 100 ML IV PRN (09:15)
[2023-01-20] MEDS ORDERED: ALPRAZolam 0.25mg tablet PO PRN (09:15)
[2023-01-20] MEDS ORDERED: acetaminophen 325mg tablet PO PRN (09:15)
[2023-01-20] MEDS ORDERED: diphenhydrAMINE 25mg capsule PO PRN (09:15)
[2023-01-20] MEDS ORDERED: magnesium 2GM in 50ml NS 50 ML IV PRN (09:15)
[2023-01-20] MEDS ORDERED: potassium Cl 20 mEq SR tablet PO PRN (09:15)
[2023-01-20] MEDS ORDERED: potassium Cl 40MEQ/270ML bag 250 ML IV PRN (09:15)
[2023-01-20] MEDS ORDERED: potassium Cl 40MEQ/1/2NS 520ml 520 ML IV PRN (09:15)
[2023-01-20] MEDS ORDERED: HYDROcodone/acetaminophen 5mg/325mg tablet PO PRN (09:15)
[2023-01-20] MEDS: normal saline 1000ml 1,000 ML IV SCH ×2 (09:15→19:15)
[2023-01-20] MEDS ORDERED: pantoprazole 40mg Tablet.DR PO PRN (09:15)
[2023-01-20] MEDS ORDERED: docusate sod 100mg capsule PO PRN (09:15)
--- NOTE | 2023-01-20 09:20 | NUR ---
Received from OR via BED, accompanied by Anesthesiologist DR. GOETZ and report given by Anesthesiologist APATIENT WAKING UP, NO S/S OF PAIN, V/S WNL, CSM INTACT, SCD ON. DRESSING TO POSTERIOR BUTTOCKS ABD 4X4 WITH PACKING SEROSANGINOUS MINIMAL SATURATION. F/C DRAINING CLEAR YELLOW URINE. 20G LUE. Addendum: 01/20/23 at 0924 by Ranjit Nova RN DIFFRENT PATIENT.
--- NOTE | 2023-01-20 09:21 | NUR ---
Received from OR via BED, accompanied by Anesthesiologist DR. BRANDT and report given by Anesthesiologist AND OR NURSE. PT ARRIVED DROWSY BUT ABLE TO RESPOND TO VERBAL STIMULI ON RA. PT HAS 18 G IV TO RIGHT FOREARM AND ART LINE TO LEFT WRIST. TR BAND TO RIGHT WRIST WITH 16ML INFLATED IN COLLAR TRIMMER. PT HAS DRESSING TO R AND L GROIN THAT IS C/D/I, NO SWELLING OR BLEEDING NOTED. ARTERIAL PRESSURE DEVICE INTACT TO RIGHT WRIST. WILL DEFLATE ORDERS STATES. NEURO ASSESSMENT COMPLETED. PUSH, PULL, JUICE PACKAGING MACHINES SETTER, SMILE ALL WITHIN NORMAL LIMITS. BILATERAL PEDAL PULSES STRONG VIA DOPPLER. VSS.
[2023-01-20] MEDS: hydrALAZINE 20mg/ml inj. IV PRN ×2 (09:39→13:36)
[2023-01-20] MEDS ORDERED: albumin (human) 25% 100 ML IV solution IV ONE (10:00)
[2023-01-20] MEDS ORDERED: aminocaproic acid 250 MG/1 ML inj. ONE (10:00)
[2023-01-20] MEDS ORDERED: calcium chloride 100 MG/1 ML inj IV ONE (10:00)
--- NOTE | 2023-01-20 10:00 | NUR ---
ARTERIAL LINE DISCONTINUED PER PROTOCOL.
--- NOTE | 2023-01-20 10:28 | NUR ---
TOTAL TR BAND ML STATED TO BE 16. DECREASED 3ML PER ORDER FROM TR BAND ON RIGHT RADIAL WRIST AT 1028, NO BLEEDING IDENTIFIED VIA TRANSPARENT PORTION OF DEVICE.
[2023-01-20] MEDS ORDERED: Insulin Reg/NS 100units/100mL 100 ML IV SCH (10:30)
[2023-01-20] MEDS ORDERED: MESSAGE TO PHARMACY IJ ONE (10:30)
[2023-01-20] MEDS ORDERED: MESSAGE TO NURSING PO ONE ×4 (10:30)
[2023-01-20] MEDS ORDERED: insulin glargine (Lantus) pen - multi-dose SQ PRN (10:30)
[2023-01-20] MEDS ORDERED: dextrose 50%-water 50ml dispensing syringe IV PRN (10:30)
[2023-01-20] MEDS ORDERED: gabapentin 400mg capsule PO ONE (10:30)
--- NOTE | 2023-01-20 10:40 | NUR ---
RECD. REPORT FROM ANASTACIA BORRERO, PT WILL BE COMING TO U RM 1331C SHORTLY.
--- NOTE | 2023-01-20 10:45 | NUR ---
PAT[facility] BED VSS. SYSTOLIC 142 REPORTED TO NURSE. PATIENT DENIES PAIN, BUT IS STRESSED HAVING RECEIVED NEWS OF FAILED AVR ATTEMPT AND NEED FOR STERNOTOMY ON TUESDAY. DRESSINGS INTACT. BED LOW, CALL LIGHT PRESENT AND 2 RAILS UP. RN PRESENT TO ACCEPT CARE OF PATIENT AND REPORT HAS BEEN CALLED. ALL QUESTIONS ANSWERED TO ANTON. NEXT CUFF DEFLATION WILL BE AT 1100 AND RELAYED TO NURSE. TRANSFERRED WITH ALL BELONGINGS AND FAMILY TO 1334A.
--- NOTE | 2023-01-20 10:45 | NUR ---
TOTAL TR BAND ML STATED TO BE 16. DECREASED 3ML PER ORDER FROM TR BAND ON RIGHT RADIAL WRIST AT 1045, NO BLEEDING IDENTIFIED VIA TRANSPARENT PORTION OF DEVICE.
--- NOTE | 2023-01-20 10:55 | NUR ---
KEON RN BROUGHT PT FROM PACU TO ROOM #1334A IN A BED, PT DENIES ANY PAIN AT THIS TIME, R RADIAL SITE AND R & L GROIN INCISION SITES DSG CDI, PT IS IN STABLE CONDITION AT THIS TIME, VSS PT IS IN NO DISTRESS AT THIS TIME, PT IS IN IN NSR, PT BELONGINGS LABELED IN BAG AT PT'S BEDSIDE, WILL CONTINUE TO MONITOR PT, DAUGHTER AND PT'S AT PT'S BEDSIDE.
[2023-01-20 14:40] LABS: ABG BASE EXCESS -1.1 mmol/L (-2.0-2.0); ABG HCO3 23.3 mmol/L (22.0-26.0); ABG OXYGEN SATURATION 97.6 % (94-97); ABG PCO2 (T) 38.1 mmHg (35.0-48.0); ABG PH (T) 7.405 (7.340-7.440); ABG PO2 (T) 94.5 mmHg (75.0-100.0); ALLEN'S TEST POSITIVE; FCOHb 0.3 % (0.0-3.9); FHHb 2.4 % (0.0-5.0); FMetHb 0.4 % (0.0-1.5); FO2Hb 96.9 % (94-97); MODE ROOM AIR; TOTAL HEMOGLOBIN 13.8 G/dl (14.0-17.9)
[2023-01-20] MEDS: sod chloride 0.9% 10ml flush syringe IV SCH (16:00)
[2023-01-20] MEDS: ceFAZolin 1GM/D5W- ADD-VANTAGE 50 ML IV SCH (16:00)
--- NOTE | 2023-01-20 18:17 | NUR ---
Problems reprioritized. Patient report given, questions answered & plan of care reviewed with ANASTACIA Enriquez, pt will be going to room #3012 shortly.
--- NOTE | 2023-01-20 18:50 | NUR ---
pt transferred to room #3019, call light with pt, pt is comfortable, pt's nurse ANASTACIA Enriquez at pt's bedside, R & L groin dsg CDI, VSS and pt is in NSR, pt does not c/o of any pain at this time, pt is in no distress at this time, all pt belongings transferred with pt to room #3019.
[2023-01-20] MEDS: vancomycin/NS 1 GM ADD-VANTAGE 250 ML IV SCH (20:52)
[2023-01-20] MEDS: metoprolol tartrate 12.5mg (1/2 tablet) PO SCH (20:52)
[2023-01-21] VITALS (7 sets, daily range): BP systolic 111–137; BP diastolic 51–69; PULSE 74–83; RESP 12–22; TEMP 97.4–98.4; O2SAT 98–100
[2023-01-21] MEDS: ceFAZolin 1GM/D5W- ADD-VANTAGE 50 ML IV SCH ×2 (00:27→08:00)
[2023-01-21] MEDS: normal saline 1000ml 1,000 ML IV SCH ×2 (05:15→15:29)
--- NOTE | 2023-01-21 06:41 | NUR ---
Patient report given, questions answered & plan of care reviewed with ANASTACIA Cano
[2023-01-21 07:45] LABS: BASOPHILS # (AUTO) 0.1 X10'3 (0-0.2); BASOPHILS % (AUTO) 1.1 % (0-1); EOSINOPHILS # (AUTO) 0.1 X10'3 (0-0.9); EOSINOPHILS % (AUTO) 1.9 % (0-6); HEMATOCRIT 35.4 % (42.0-52.0); HEMOGLOBIN 11.7 g/dl (14.0-17.9); LYMPHOCYTES # (AUTO) 0.7 X10'3 (1.1-4.8); LYMPHOCYTES % (AUTO) 13.3 % (21-51); MEAN CORPUSCULAR HEMOGLOBIN 29.4 PG (27.0-31.0); MEAN CORPUSCULAR HGB CONC 33.1 g/dL (33.0-36.5); MEAN CORPUSCULAR VOLUME 88.8 FL (78-98); MEAN PLATELET VOLUME 8.3 FL (7.4-10.4); MONOCYTES # (AUTO) 0.6 X10'3 (0-0.9); NEUTROPHILS # (AUTO) 3.7 X10'3 (1.8-7.7); NEUTROPHILS % (AUTO) 72.7 % (42-75); PLATELET COUNT 172 X10'3 (140-440); RED BLOOD COUNT 3.98 X10'6 (4.70-6.10); RED CELL DISTRIBUTION WIDTH 14.6 % (11.5-14.5)
[2023-01-21] MEDS: cholecalciferol (vitamin D3) 1,000 unit (25mcg) tablet PO SCH ×2 (07:58→08:00)
[2023-01-21] MEDS: vancomycin/NS 1 GM ADD-VANTAGE 250 ML IV SCH (08:00)
[2023-01-21] MEDS: metoprolol tartrate 12.5mg (1/2 tablet) PO SCH ×2 (08:00→19:30)
[2023-01-21] MEDS: FERROUS GLUCONATE PO SCH ×3 (08:00→19:31)
[2023-01-21] MEDS: sod chloride 0.9% 10ml flush syringe IV SCH ×3 (08:00→15:30)
[2023-01-21 08:16] LABS: ALANINE AMINOTRANSFERASE 19 U/L (12-78); ALBUMIN 3.2 G/DL (3.4-5.0); ALBUMIN/GLOBULIN RATIO 1.1 (1.1-1.5); ALKALINE PHOSPHATASE 67 IU/L (46-116); ANION GAP 8 (8-16); ASPARTATE AMINO TRANSFERASE 14 U/L (10-37); BILIRUBIN,TOTAL 0.7 MG/DL (0.1-1.0); BLOOD UREA NITROGEN 21 MG/DL (7-18); BUN/CREATININE RATIO 18.9 (10.0-20.0); CALCIUM 8.8 MG/DL (8.5-10.1); CHLORIDE 104 MMOL/L (99-107); CREATININE 1.11 MG/DL (0.60-1.10); GLUCOSE 90 MG/DL (70-104); MAGNESIUM 1.7 MG/DL (1.5-2.4); POTASSIUM 3.9 MMOL/L (3.5-5.1); PRO BRAIN NATRIURETIC PEPTIDE 2003 PG/ML (0-450); SODIUM 139 MMOL/L (135-145); TOTAL CARBON DIOXIDE 27.5 MMOL/L (24-32); TOTAL PROTEIN 6.1 G/DL (6.4-8.2); eCRCL 46 ML/MIN; eGFR 64 ML/MIN
--- NOTE | 2023-01-21 09:14 | NUR ---
Noted pt with a low BMI for geriatric age of [age]. Current scaled wt is 59.7 kg which is stable with scaled wt hx in EMR (60.6 kg 11/30 and 60.3 kg 12/09). Per malnutrition risk screen with RN pt denied decreased appetite/PO intake or unintentional wt loss. Pt with no documented significant decrease in muscle strength or edema. No concerns for malnutrition at this time. Will continue to follow and make recommendations as appropriate. Addendum: 01/21/23 at 0914 by Maria Del Carmen Hernandes RD Amended: Links added.
[2023-01-21] MEDS ORDERED: MESSAGE TO NURSING PO ONE (10:00)
[2023-01-22] VITALS (7 sets, daily range): BP systolic 93–138; BP diastolic 40–68; PULSE 76–84; RESP 11–22; TEMP 98–98.2; O2SAT 97–100
[2023-01-22] MEDS: sod chloride 0.9% 10ml flush syringe IV SCH ×4 (00:13→23:09)
[2023-01-22] MEDS: FERROUS GLUCONATE PO SCH ×3 (08:00→20:14)
[2023-01-22] MEDS: metoprolol tartrate 12.5mg (1/2 tablet) PO SCH ×2 (08:37→19:18)
[2023-01-22] MEDS: cholecalciferol (vitamin D3) 1,000 unit (25mcg) tablet PO SCH (08:38)
[2023-01-22 08:39] LABS: ANION GAP 8 (8-16); BLOOD UREA NITROGEN 23 MG/DL (7-18); BUN/CREATININE RATIO 24.7 (10.0-20.0); CALCIUM 8.9 MG/DL (8.5-10.1); CHLORIDE 106 MMOL/L (99-107); CREATININE 0.93 MG/DL (0.60-1.10); GLUCOSE 96 MG/DL (70-104); SODIUM 140 MMOL/L (135-145); TOTAL CARBON DIOXIDE 26.5 MMOL/L (24-32); eCRCL 54 ML/MIN; eGFR 78 ML/MIN
[2023-01-22 08:41] LABS: EOSINOPHILS # (AUTO) 0.2 X10'3 (0-0.9); EOSINOPHILS % (AUTO) 4.5 % (0-6); HEMATOCRIT 34.9 % (42.0-52.0); HEMOGLOBIN 11.8 g/dl (14.0-17.9); LYMPHOCYTES # (AUTO) 0.6 X10'3 (1.1-4.8); LYMPHOCYTES % (AUTO) 13.9 % (21-51); MEAN CORPUSCULAR HEMOGLOBIN 29.9 PG (27.0-31.0); MEAN CORPUSCULAR HGB CONC 33.8 g/dL (33.0-36.5); MEAN CORPUSCULAR VOLUME 88.3 FL (78-98); MEAN PLATELET VOLUME 8.2 FL (7.4-10.4); MONOCYTES # (AUTO) 0.6 X10'3 (0-0.9); MONOCYTES % (AUTO) 12.8 % (2-12); NEUTROPHILS # (AUTO) 3.1 X10'3 (1.8-7.7); NEUTROPHILS % (AUTO) 67.8 % (42-75); PLATELET COUNT 159 X10'3 (140-440); RED BLOOD COUNT 3.95 X10'6 (4.70-6.10); RED CELL DISTRIBUTION WIDTH 14.2 % (11.5-14.5); WHITE BLOOD COUNT 4.5 X10'3 (4.5-11.0)
[2023-01-23] VITALS (30 sets, daily range): BP systolic 72–170; BP diastolic 32–86; PULSE 68–119; RESP 12–24; TEMP 91.5–98.6; O2SAT 75–100
[2023-01-23] MEDS ORDERED: Cefazolin 2GM/100ML NS IVPB 100 ML IV ONE ×2 (01:25→08:30)
[2023-01-23] MEDS ORDERED: epiNEPHrine 1 mg/ml inj ONE (06:15)
[2023-01-23] MEDS ORDERED: vancomycin 1,000mg inj ONE (06:15)
[2023-01-23] MEDS ORDERED: ceFAZolin 1000mg inj ONE (06:15)
[2023-01-23] MEDS ORDERED: famotidine 20mg tablet PO ONE (06:30)
[2023-01-23] MEDS ORDERED: LORazepam 2 mg/ml vial IV ONE (06:30)
[2023-01-23] MEDS ORDERED: metoprolol tartrate 12.5mg (1/2 tablet) PO SCH (06:40)
--- NOTE | 2023-01-23 06:49 | NUR ---
Patient in room PCU 3019. I have received report from Mohinder GALAVIZ and had the opportunity to ask questions and assume patient care.
[2023-01-23 07:09] LABS: EOSINOPHILS # (AUTO) 0.2 X10'3 (0-0.9); EOSINOPHILS % (AUTO) 4.1 % (0-6); LYMPHOCYTES # (AUTO) 0.7 X10'3 (1.1-4.8); LYMPHOCYTES % (AUTO) 15.2 % (21-51); MEAN CORPUSCULAR HEMOGLOBIN 29.8 PG (27.0-31.0); MEAN CORPUSCULAR HGB CONC 33.5 g/dL (33.0-36.5); MEAN PLATELET VOLUME 7.7 FL (7.4-10.4); MONOCYTES # (AUTO) 0.5 X10'3 (0-0.9); MONOCYTES % (AUTO) 12.6 % (2-12); NEUTROPHILS # (AUTO) 2.9 X10'3 (1.8-7.7); NEUTROPHILS % (AUTO) 67.1 % (42-75); PLATELET COUNT 151 X10'3 (140-440); RED BLOOD COUNT 4.04 X10'6 (4.70-6.10); RED CELL DISTRIBUTION WIDTH 14.6 % (11.5-14.5); WHITE BLOOD COUNT 4.3 X10'3 (4.5-11.0)
[2023-01-23 07:14] LABS: PROTHROMBIN TIME 10.9 SECONDS (9.0-12.0)
[2023-01-23] MEDS ORDERED: NORepinephrine 8 MG in NS 250 ML BAG (32 mcg/ml) IV ONE (07:54)
[2023-01-23] MEDS ORDERED: LIDOcaine 2% (20mg/ml) 5ml vial ONE (07:54)
[2023-01-23] MEDS ORDERED: sevoflurane 250ml liquid IH ONE ×2 (07:54→15:15)
[2023-01-23] MEDS ORDERED: nitroGLYCERIN in D5W 50mg/250ml (Tridil) infusion IV ONE (07:54)
[2023-01-23] MEDS ORDERED: MIDAZolam 1 MG/ML 5ML VIAL ONE (07:58)
[2023-01-23] MEDS ORDERED: SUfentanil 50mcg/ml 1ml amp IV ONE (07:58)
[2023-01-23] MEDS ORDERED: potassium Cl 2 mEq/ml inj IV ONE (08:00)
[2023-01-23] MEDS: FERROUS GLUCONATE PO SCH (08:00)
[2023-01-23] MEDS: cholecalciferol (vitamin D3) 1,000 unit (25mcg) tablet PO SCH (08:00)
[2023-01-23] MEDS ORDERED: mupirocin 2% nasal ointment 1gm UD NS SCH (08:00)
[2023-01-23] MEDS: sod chloride 0.9% 10ml flush syringe IV SCH (08:00)
[2023-01-23 08:05] LABS: ALBUMIN 3.1 G/DL (3.4-5.0); ANION GAP 7 (8-16); BLOOD UREA NITROGEN 24 MG/DL (7-18); BUN/CREATININE RATIO 26.1 (10.0-20.0); CALCIUM 9.2 MG/DL (8.5-10.1); CHLORIDE 105 MMOL/L (99-107); CREATININE 0.92 MG/DL (0.60-1.10); GLUCOSE 97 MG/DL (70-104); POTASSIUM 3.9 MMOL/L (3.5-5.1); SODIUM 140 MMOL/L (135-145); TOTAL CARBON DIOXIDE 27.9 MMOL/L (24-32); eCRCL 55 ML/MIN; eGFR 79 ML/MIN
[2023-01-23] MEDS ORDERED: gabapentin 400mg capsule PO ONE (08:30)
[2023-01-23] MEDS ORDERED: Insulin Reg/NS 100units/100mL 100 ML IV SCH ×2 (08:30→11:15)
[2023-01-23] MEDS ORDERED: vancomycin/NS 1 GM ADD-VANTAGE 250 ML IV ONE (08:30)
[2023-01-23 09:23] LABS: ABG BASE EXCESS 3.1 mmol/L (-2.0-2.0); ABG HCO3 25.7 mmol/L (22.0-26.0); ABG OXYGEN SATURATION 99.2 % (94-97); ABG PCO2 32.3 mmHg (35.0-48.0); ABG PH 7.518 (7.340-7.440); ABG PO2 271.6 mmHg (75.0-100.0); CL (ABG) 105 mmol/L (99-107); FCOHb 0.3 % (0.0-3.9); FHHb 0.8 % (0.0-5.0); FMetHb 0.3 % (0.0-1.5); FO2Hb 98.6 % (94-97); GLUCOSE (ABG) 90 mg/dl (70-104); IONIZED CA (ABG) 1.14 mmol/L (1.10-1.30); K (ABG) 3.9 mmol/L (3.5-5.1); TOTAL HEMOGLOBIN 11.5 G/dl (14.0-17.9)
[2023-01-23 09:54] LABS: ABG HCO3 27.1 mmol/L (22.0-26.0); ABG OXYGEN SATURATION 99.1 % (94-97); ABG PCO2 34.8 mmHg (35.0-48.0); ABG PO2 299.6 mmHg (75.0-100.0); CL (ABG) 102 mmol/L (99-107); FCOHb 0.2 % (0.0-3.9); FHHb 0.9 % (0.0-5.0); FMetHb 0.3 % (0.0-1.5); FO2Hb 98.6 % (94-97); GLUCOSE (ABG) 111 mg/dl (70-104); K (ABG) 4.8 mmol/L (3.5-5.1); TOTAL HEMOGLOBIN 8.4 G/dl (14.0-17.9)
[2023-01-23 10:18] LABS: ABG BASE EXCESS VENOUS 1.4 mmol/L (-2.0 - 2.0); ABG HCO3 VENOUS 25.4 mmol/L (21.0-28.0); ABG OXYGEN SATURATION VENOUS 85.4 % (75 - 99 %); ABG PCO2 VENOUS 36.9 mmHg (41.0-54.0); ABG PH (VENOUS) 7.455 (7.310-7.450); ABG PO2 VENOUS 44.2 mmHg (25.0-35.0); CL (ABG) 102 mmol/L (99-107); FCOHb VENOUS 0.2 %; FHHb VENOUS 14.5 %; FMetHb VENOUS 0.3 % (0.0 - 0.5); GLUCOSE (ABG) 110 mg/dl (70-104); IONIZED CA (ABG) 1.03 mmol/L (1.10-1.30); K (ABG) 4.7 mmol/L (3.5-5.1); TOTAL HEMOGLOBIN 8.2 G/dl (14.0-17.9)
[2023-01-23 10:43] LABS: ABG BASE EXCESS 2.7 mmol/L (-2.0-2.0); ABG HCO3 26.7 mmol/L (22.0-26.0); ABG OXYGEN SATURATION 99.1 % (94-97); ABG PCO2 38.4 mmHg (35.0-48.0); CL (ABG) 101 mmol/L (99-107); FCOHb 0.3 % (0.0-3.9); FHHb 0.9 % (0.0-5.0); FMetHb 0.1 % (0.0-1.5); FO2Hb 98.7 % (94-97); GLUCOSE (ABG) 126 mg/dl (70-104); IONIZED CA (ABG) 1.37 mmol/L (1.10-1.30); K (ABG) 4.4 mmol/L (3.5-5.1); TOTAL HEMOGLOBIN 7.6 G/dl (14.0-17.9)
[2023-01-23 11:05] LABS: ACTIVATED CLOTTING TIME 134 SEC (101-148)
[2023-01-23] MEDS ORDERED: albumin (Human) 5% 250ml 250 ML IV ONE ×2 (11:12)
[2023-01-23] MEDS ORDERED: nitroGLYCERIN-Tridil 50MG/D5W 250 ML IV PRN (11:15)
[2023-01-23] MEDS ORDERED: bisacodyl 10mg suppository rectal RC PRN (11:15)
[2023-01-23] MEDS ORDERED: potassium Cl 40MEQ/1/2NS 520ml 520 ML IV PRN (11:15)
[2023-01-23] MEDS ORDERED: niCARDipine-NS 40mg/200ml IVPB 200 ML IV PRN (11:15)
[2023-01-23] MEDS ORDERED: Neutra Phos packet PO PRN (11:15)
[2023-01-23] MEDS ORDERED: sodium phosphate inj. 15 MMOL in dextrose 5%-water 250 ML IV PRN (11:15)
[2023-01-23] MEDS ORDERED: sodium phosphate inj. 30 MMOL in dextrose 5%-water 250 ML IV PRN (11:15)
[2023-01-23] MEDS ORDERED: morphine 4 MG/ML inj SYRINge IV PRN (11:15)
[2023-01-23] MEDS ORDERED: acetaminophen 325mg tablet PO PRN ×2 (11:15)
[2023-01-23] MEDS ORDERED: potassium CL 10mEq/100ml bag 100 ML IV PRN (11:15)
[2023-01-23] MEDS ORDERED: insulin glargine (Lantus) pen - multi-dose SQ PRN (11:15)
[2023-01-23] MEDS ORDERED: NORepinephrine 8mg/ 250ml NS 250 ML IV PRN (11:15)
[2023-01-23] MEDS ORDERED: dextrose 50%-water 50ml dispensing syringe IV PRN (11:15)
[2023-01-23] MEDS ORDERED: potassium Cl 20 mEq SR tablet PO PRN (11:15)
[2023-01-23] MEDS ORDERED: ondansetron/PF 4mg/2ml inj IV PRN (11:15)
[2023-01-23] MEDS ORDERED: sodium chloride 0.45% 1,000 ML IV SCH (11:15)
[2023-01-23] MEDS ORDERED: mineral oil 133ml enema RC PRN (11:15)
[2023-01-23] MEDS ORDERED: magnesium hydroxide 30ml (MOM) UD suspension PO PRN (11:15)
[2023-01-23] MEDS ORDERED: magnesium 4gm in 100ml NS 100 ML IV PRN (11:15)
[2023-01-23] MEDS ORDERED: HYDROcodone/acetaminophen 10/325mg tab PO PRN ×2 (11:15)
[2023-01-23] MEDS ORDERED: propofol inj 20 ML IV ONE ×2 (11:18)
[2023-01-23] MEDS ORDERED: rocuronium 10mg/ml inj IV ONE ×2 (11:19)
--- NOTE | 2023-01-23 11:50 | NUR ---
Received to room 2040, accompanied by MDs and surgical crew. Placed on ventilator, to monitoring and evaluation advisor, arterial line and PA line pressure zeroed & monitored. Chest tubes to suction at 20 cm. Wood cath to gravity drainage. Dressings are dry and intact. See assessment record. All vasoactive drugs are infusing via central line.
[2023-01-23 12:09] LABS: ABG BASE EXCESS -2.3 mmol/L (-2.0-2.0); ABG HCO3 21.5 mmol/L (22.0-26.0); ABG OXYGEN SATURATION 99.4 % (94-97); ABG PCO2 (T) 32.4 mmHg (35.0-48.0); ABG PH (T) 7.437 (7.340-7.440); ABG PO2 (T) 321.6 mmHg (75.0-100.0); FCOHb 0.3 % (0.0-3.9); FHHb 0.6 % (0.0-5.0); FMetHb 0.3 % (0.0-1.5); FO2Hb 98.8 % (94-97); MODE VENT - SIMV; PATIENT TEMPERATURE 36.6; PEEP 5 cm H2O; RESPIRATORY RATE 12 b/min; TIDAL VOLUME 450 mL; TOTAL HEMOGLOBIN 9.8 G/dl (14.0-17.9)
[2023-01-23] MEDS: albumin (Human) 5% 250ml 250 ML IV PRN ×4 (12:11→22:27)
[2023-01-23 12:19] LABS: BASOPHILS % (AUTO) 0.2 % (0-1); EOSINOPHILS # (AUTO) 0.1 X10'3 (0-0.9); EOSINOPHILS % (AUTO) 0.6 % (0-6); HEMATOCRIT 27.3 % (42.0-52.0); HEMOGLOBIN 8.9 g/dl (14.0-17.9); LYMPHOCYTES # (AUTO) 0.6 X10'3 (1.1-4.8); LYMPHOCYTES % (AUTO) 5.1 % (21-51); MEAN CORPUSCULAR HEMOGLOBIN 29.2 PG (27.0-31.0); MEAN CORPUSCULAR HGB CONC 32.8 g/dL (33.0-36.5); MONOCYTES # (AUTO) 0.5 X10'3 (0-0.9); MONOCYTES % (AUTO) 4.6 % (2-12); NEUTROPHILS # (AUTO) 10.5 X10'3 (1.8-7.7); NEUTROPHILS % (AUTO) 89.5 % (42-75); PLATELET COUNT 91 X10'3 (140-440); RED BLOOD COUNT 3.07 X10'6 (4.70-6.10); RED CELL DISTRIBUTION WIDTH 14.2 % (11.5-14.5); WHITE BLOOD COUNT 11.7 X10'3 (4.5-11.0)
[2023-01-23 12:31] LABS: APTT 38 SECONDS (22-32); INR 1.3 INR
[2023-01-23 12:35] LABS: ALANINE AMINOTRANSFERASE 13 U/L (12-78); ALBUMIN 2.9 G/DL (3.4-5.0); ALBUMIN/GLOBULIN RATIO 1.7 (1.1-1.5); ALKALINE PHOSPHATASE 42 IU/L (46-116); ANION GAP 4 (8-16); ASPARTATE AMINO TRANSFERASE 20 U/L (10-37); BILIRUBIN,TOTAL 0.9 MG/DL (0.1-1.0); BLOOD UREA NITROGEN 18 MG/DL (7-18); CALCIUM 8.4 MG/DL (8.5-10.1); CHLORIDE 106 MMOL/L (99-107); CREATININE 0.82 MG/DL (0.60-1.10); GLUCOSE 160 MG/DL (70-104); MAGNESIUM 2.4 MG/DL (1.5-2.4); POTASSIUM 4.2 MMOL/L (3.5-5.1); SODIUM 136 MMOL/L (135-145); TOTAL CARBON DIOXIDE 25.7 MMOL/L (24-32); TOTAL PROTEIN 4.6 G/DL (6.4-8.2); eCRCL 62 ML/MIN; eGFR > 90 ML/MIN
--- NOTE | 2023-01-23 12:39 | NUR ---
RN notified Dr. Rodas of Ct output 550. Coags WNL. Stated "ok" and just to monitor it.
[2023-01-23] MEDS: potassium Cl 20mEq/100mL bag 100 ML IV PRN ×5 (12:54→22:35)
[2023-01-23] MEDS: magnesium 2GM in 50ml NS 50 ML IV PRN (12:56)
[2023-01-23] MEDS: Insulin Reg/NS 100units/100mL 100 ML IV SCH (13:12)
--- NOTE | 2023-01-23 13:47 | NUR ---
RN notified Dr. Rodas of CT output 750, llts 91.Platelets to be transfused
[2023-01-23] MEDS ORDERED: DOPamine 400mg/D5W 250ml 250 ML IV ONE (14:34)
[2023-01-23] MEDS ORDERED: albumin (human) 25% 100ml IV 0 ML IV ONE (14:53)
[2023-01-23 15:19] LABS: ABG BASE EXCESS -23.9 mmol/L (-2.0-2.0); ABG HCO3 8.1 mmol/L (22.0-26.0); ABG OXYGEN SATURATION 98.3 % (94-97); ABG PCO2 (T) 46.7 mmHg (35.0-48.0); ABG PH (T) 6.859 (7.340-7.440); ABG PO2 (T) 180.4 mmHg (75.0-100.0); FHHb 1.7 % (0.0-5.0); FMetHb 0.3 % (0.0-1.5); PATIENT TEMPERATURE 37.5; TOTAL HEMOGLOBIN 7.7 G/dl (14.0-17.9)
[2023-01-23 15:28] LABS: ABG BASE EXCESS 36.1 mmol/L (-2.0-2.0); ABG HCO3 59.7 mmol/L (22.0-26.0); ABG OXYGEN SATURATION 96.5 % (94-97); ABG PCO2 (T) 45.1 mmHg (35.0-48.0); ABG PH (T) 7.731 (7.340-7.440); ABG PO2 (T) 59.6 mmHg (75.0-100.0); FCOHb 0.7 % (0.0-3.9); FHHb 3.5 % (0.0-5.0); FLOW 15 L/min; FMetHb 0.3 % (0.0-1.5); FO2Hb 95.5 % (94-97); PATIENT TEMPERATURE 33.5
[2023-01-23 15:46] LABS: ABG BASE EXCESS -12.3 mmol/L (-2.0-2.0); ABG HCO3 17.8 mmol/L (22.0-26.0); ABG OXYGEN SATURATION 89.7 % (94-97); ABG PO2 71.9 mmHg (75.0-100.0); CL (ABG) 106 mmol/L (99-107); FCOHb 0.2 % (0.0-3.9); FHHb 10.2 % (0.0-5.0); FMetHb 0.3 % (0.0-1.5); FO2Hb 89.3 % (94-97); GLUCOSE (ABG) 280 mg/dl (70-104); IONIZED CA (ABG) 1.27 mmol/L (1.10-1.30); K (ABG) 4.2 mmol/L (3.5-5.1); TOTAL HEMOGLOBIN 8.5 G/dl (14.0-17.9)
--- NOTE | 2023-01-23 15:46 | NUR ---
Nutrition consult: Pt s/p AVR surgery today 01/23 per EMR. Noted marli magaña called on pt and taken back to OR. High protein nutrition education deferred at this time; will monitor for a medically appropriate time. Noted pt intubated today 01/23 for procedure. Will continue to monitor. Addendum: 01/23/23 at [address] Amended: Links added.
[2023-01-23] MEDS ORDERED: NORepinephrine bitart. inj. IV ONE (16:00)
[2023-01-23] MEDS: ceFAZolin/D5W- 1GM premix 50 ML IV SCH (16:00)
[2023-01-23] MEDS ORDERED: ceFAZolin 1000mg inj IR ONE (16:00)
--- NOTE | 2023-01-23 16:00 | NUR ---
Pt. received Albumin x 3 post op in an attempt to wean Levo which RN was able to do(Levo 0.08 to 0.04).RN called and notified Dr. Rodas of CT output twice (1239 and 1347), once at 1235 and once at Pt. received platelets for plts of [address] amount of [address] Rodas order. 1430 VS: 98 HR, 97% SP02, 16 resps, BP 107/51 (Levo at 0.04), PA 41/23, CVP 17, end tidal CO2 24, temp 37,1. At approx. 1435 while RN was at bedside pt. noted to be bradycardic, unresponsive, and hypotensive (pt. was previously with eyes open, moving all extremities and stable on vent. automotive parts salesperson came into room. Pacer box turned on as it was OFF since pt. arrived to room post CVOR. Primary RN called Dr. Rodas. Another RN called pt's son-in-law Abraham Hernandez to update him. Pt. BP continued to decrease as RN was on the phone with Dr. oRdas. automotive parts salesperson pushed EPI as directed by Dr. Rodas. Dr. Rodas stated he would be at the hospital in 8 minutes. CPR started, CODE BLUE called overhead. CODE in progress when Dr. Rodas and Abraham Hernandez arrived. Open chest code resumed until pt. was taken back to CVOR at 1535.
[2023-01-23 16:03] LABS: ABG BASE EXCESS -8.6 mmol/L (-2.0-2.0); ABG HCO3 20.8 mmol/L (22.0-26.0); ABG OXYGEN SATURATION 92.1 % (94-97); ABG PO2 76.8 mmHg (75.0-100.0); CL (ABG) 105 mmol/L (99-107); FCOHb 0.3 % (0.0-3.9); FHHb 7.9 % (0.0-5.0); FMetHb 0.3 % (0.0-1.5); FO2Hb 91.5 % (94-97); GLUCOSE (ABG) 256 mg/dl (70-104); IONIZED CA (ABG) 1.15 mmol/L (1.10-1.30); K (ABG) 3.7 mmol/L (3.5-5.1); TOTAL HEMOGLOBIN 8.5 G/dl (14.0-17.9)
[2023-01-23 16:24] LABS: ABG BASE EXCESS -7.2 mmol/L (-2.0-2.0); ABG HCO3 20.9 mmol/L (22.0-26.0); ABG OXYGEN SATURATION 98.2 % (94-97); ABG PCO2 (T) 57.6 mmHg (35.0-48.0); ABG PH (T) 7.177 (7.340-7.440); FCOHb 0.3 % (0.0-3.9); FHHb 1.8 % (0.0-5.0); FMetHb 0.3 % (0.0-1.5); FO2Hb 97.6 % (94-97); TOTAL HEMOGLOBIN 7.8 G/dl (14.0-17.9)
[2023-01-23 16:27] LABS: HEMATOCRIT 22.3 % (42.0-52.0); HEMOGLOBIN 7.4 g/dl (14.0-17.9); MEAN CORPUSCULAR HEMOGLOBIN 30.3 PG (27.0-31.0); MEAN CORPUSCULAR HGB CONC 33.1 g/dL (33.0-36.5); MEAN CORPUSCULAR VOLUME 91.6 FL (78-98); MEAN PLATELET VOLUME 7.9 FL (7.4-10.4); RED BLOOD COUNT 2.44 X10'6 (4.70-6.10); RED CELL DISTRIBUTION WIDTH 14.8 % (11.5-14.5); WHITE BLOOD COUNT 7.3 X10'3 (4.5-11.0)
[2023-01-23 16:45] LABS: PLATELET COUNT 43 X10'3 (140-440)
[2023-01-23 16:49] LABS: FIBRINOGEN 75 MG/DL (177-424); INR 2.2 INR; PROTHROMBIN TIME 22.6 SECONDS (9.0-12.0)
[2023-01-23 16:54] LABS: APTT > 139 SECONDS (22-32)
[2023-01-23 17:00] LABS: ABG BASE EXCESS -12.4 mmol/L (-2.0-2.0); ABG HCO3 16.9 mmol/L (22.0-26.0); ABG OXYGEN SATURATION 91.4 % (94-97); ABG PCO2 (T) 54.5 mmHg (35.0-48.0); ABG PH (T) 7.109 (7.340-7.440); ABG PO2 (T) 69.6 mmHg (75.0-100.0); FCOHb 0.3 % (0.0-3.9); FHHb 8.5 % (0.0-5.0); FMetHb 0.3 % (0.0-1.5); FO2Hb 90.9 % (94-97); TOTAL HEMOGLOBIN 10.9 G/dl (14.0-17.9)
[2023-01-23] MEDS ORDERED: epiNEPHrine 0.1mg/ml 10ml syringe ONE (17:01)
[2023-01-23] MEDS ORDERED: sodium bicarbonate (8.4%) inj. 1 MEQ/ML ML ONE ×3 (17:01)
[2023-01-23] MEDS ORDERED: calcium chloride 100 MG/1 ML inj IV ONE ×2 (17:01)
[2023-01-23] MEDS ORDERED: epiNEPHrine 1 mg/ml 30ml MDV ONE (17:15)
[2023-01-23] MEDS ORDERED: furosemide 40mg/4ml inj ONE ×2 (17:21→17:58)
[2023-01-23 17:56] LABS: ABG BASE EXCESS -10.5 mmol/L (-2.0-2.0); ABG HCO3 18.4 mmol/L (22.0-26.0); ABG OXYGEN SATURATION 85.9 % (94-97); ABG PCO2 (T) 53.1 mmHg (35.0-48.0); ABG PH (T) 7.151 (7.340-7.440); ABG PO2 (T) 50.9 mmHg (75.0-100.0); FCOHb 0.3 % (0.0-3.9); FMetHb 0.3 % (0.0-1.5); FO2Hb 85.4 % (94-97); MODE VENT - SIMV; PEEP 10 cm H2O; RESPIRATORY RATE 20 b/min; TIDAL VOLUME 400 mL; TOTAL HEMOGLOBIN 10.4 G/dl (14.0-17.9)
[2023-01-23] MEDS ORDERED: albuterol 2.5 MG/3 ML nebule NEB PRN (18:00)
--- NOTE | 2023-01-23 18:05 | NUR ---
Pt. back from CVOR with IABP. Hooked up to monitor. Milrinone started. Epi infusing. Family in briefly to see pt. Dr. Rodas at bedside.
--- NOTE | 2023-01-23 18:09 | NUR ---
Report to Ricky GALAVIZ.
[2023-01-23 18:43] LABS: ALBUMIN 3.2 G/DL (3.4-5.0); ANION GAP 24 (8-16); BLOOD UREA NITROGEN 19 MG/DL (7-18); BUN/CREATININE RATIO 12.5 (10.0-20.0); CALCIUM 9.3 MG/DL (8.5-10.1); CHLORIDE 112 MMOL/L (99-107); CREATININE 1.52 MG/DL (0.60-1.10); GLUCOSE 210 MG/DL (70-104); MAGNESIUM 2.7 MG/DL (1.5-2.4); PHOSPHORUS 5.6 MG/DL (2.3-4.5); TOTAL CARBON DIOXIDE 22.3 MMOL/L (24-32); eCRCL 33 ML/MIN; eGFR 44 ML/MIN
[2023-01-23 18:55] LABS: HEMOGLOBIN 9.6 g/dl (14.0-17.9); LYMPHOCYTES # (AUTO) 0.8 X10'3 (1.1-4.8); LYMPHOCYTES % (AUTO) 11.5 % (21-51); MEAN PLATELET VOLUME 7.1 FL (7.4-10.4); MONOCYTES # (AUTO) 0.1 X10'3 (0-0.9); MONOCYTES % (AUTO) 1.7 % (2-12); NEUTROPHILS # (AUTO) 5.7 X10'3 (1.8-7.7); WHITE BLOOD COUNT 6.6 X10'3 (4.5-11.0)
[2023-01-23 18:57] LABS: BASOPHILS % (AUTO) 0.2 % (0-1); EOSINOPHILS % (AUTO) 0.2 % (0-6); HEMATOCRIT 28.3 % (42.0-52.0); MEAN CORPUSCULAR HEMOGLOBIN 31.4 PG (27.0-31.0); MEAN CORPUSCULAR HGB CONC 33.9 g/dL (33.0-36.5); MEAN CORPUSCULAR VOLUME 92.7 FL (78-98); NEUTROPHILS % (AUTO) 86.4 % (42-75); PLATELET COUNT 111 X10'3 (140-440); RED BLOOD COUNT 3.05 X10'6 (4.70-6.10); RED CELL DISTRIBUTION WIDTH 15.3 % (11.5-14.5)
[2023-01-23 19:05] LABS: SODIUM 158 MMOL/L (135-145)
[2023-01-23 19:06] LABS: ABG BASE EXCESS -10.4 mmol/L (-2.0-2.0); ABG HCO3 18.2 mmol/L (22.0-26.0); ABG OXYGEN SATURATION 88.7 % (94-97); ABG PCO2 (T) 44.5 mmHg (35.0-48.0); ABG PH (T) 7.205 (7.340-7.440); ABG PO2 (T) 44.1 mmHg (75.0-100.0); ALLEN'S TEST Modified; FCOHb 0.1 % (0.0-3.9); FHHb 11.3 % (0.0-5.0); FMetHb 0.3 % (0.0-1.5); FO2Hb 88.3 % (94-97); MODE AC/PC; PATIENT TEMPERATURE 32.8; PEEP 15 cm H2O; RESPIRATORY RATE 16 b/min
[2023-01-23] MEDS ORDERED: sodium bicarbonate (8.4%) 1 mEq/ml syringe IV ONE (19:20)
[2023-01-23 19:43] LABS: BASOPHILS % (AUTO) 0.2 % (0-1); EOSINOPHILS % (AUTO) 0.2 % (0-6); HEMATOCRIT 27.6 % (42.0-52.0); HEMOGLOBIN 9.2 g/dl (14.0-17.9); LYMPHOCYTES # (AUTO) 0.5 X10'3 (1.1-4.8); LYMPHOCYTES % (AUTO) 6.9 % (21-51); MEAN CORPUSCULAR HEMOGLOBIN 30.9 PG (27.0-31.0); MEAN CORPUSCULAR HGB CONC 33.4 g/dL (33.0-36.5); MEAN CORPUSCULAR VOLUME 92.6 FL (78-98); MEAN PLATELET VOLUME 7.2 FL (7.4-10.4); MONOCYTES # (AUTO) 0.1 X10'3 (0-0.9); MONOCYTES % (AUTO) 0.8 % (2-12); NEUTROPHILS # (AUTO) 6.6 X10'3 (1.8-7.7); NEUTROPHILS % (AUTO) 91.9 % (42-75); PLATELET COUNT 121 X10'3 (140-440); RED BLOOD COUNT 2.98 X10'6 (4.70-6.10); WHITE BLOOD COUNT 7.2 X10'3 (4.5-11.0)
--- NOTE | 2023-01-23 19:46 | NUR ---
Notified Dr. Rodas of ABG, current drips, vent settings, vitals and that atrial wire is no longer capturing with regularity
[2023-01-23] MEDS: epiNEPHrine inj 5 MG in normal saline 250ml IV soln 245 ML IV SCH (19:54)
[2023-01-23] MEDS: milrinone (Primacor) 20mg/D5W 100 ML IV SCH (19:55)
[2023-01-23] MEDS: sennosides/docusate sodium tablet PO SCH (20:00)
[2023-01-23 20:01] LABS: ALBUMIN 3.4 G/DL (3.4-5.0); ALBUMIN/GLOBULIN RATIO 2.1 (1.1-1.5); ALKALINE PHOSPHATASE 40 IU/L (46-116); ANION GAP 23 (8-16); ASPARTATE AMINO TRANSFERASE 222 U/L (10-37); BILIRUBIN,TOTAL 1.4 MG/DL (0.1-1.0); BLOOD UREA NITROGEN 21 MG/DL (7-18); BUN/CREATININE RATIO 13.4 (10.0-20.0); CALCIUM 8.8 MG/DL (8.5-10.1); CHLORIDE 112 MMOL/L (99-107); CREATININE 1.57 MG/DL (0.60-1.10); GLUCOSE 206 MG/DL (70-104); MAGNESIUM 2.7 MG/DL (1.5-2.4); PHOSPHORUS 4.1 MG/DL (2.3-4.5); TOTAL CARBON DIOXIDE 21.5 MMOL/L (24-32); eCRCL 32 ML/MIN; eGFR 43 ML/MIN
[2023-01-23 20:07] LABS: APTT 60 SECONDS (22-32); FIBRINOGEN 182 MG/DL (177-424); INR 1.5 INR; PROTHROMBIN TIME 15.6 SECONDS (9.0-12.0)
[2023-01-23 20:08] LABS: POTASSIUM 2.9 MMOL/L (3.5-5.1); SODIUM 156 MMOL/L (135-145)
[2023-01-23] MEDS: atorvastatin 10mg tablet PO SCH (20:12)
[2023-01-23] MEDS: vancomycin/NS 1 GM ADD-VANTAGE 250 ML IV SCH (20:13)
[2023-01-23 20:14] LABS: ABG BASE EXCESS -6.3 mmol/L (-2.0-2.0); ABG HCO3 20.4 mmol/L (22.0-26.0); ABG OXYGEN SATURATION 96.2 % (94-97); ABG PCO2 (T) 39.8 mmHg (35.0-48.0); ABG PH (T) 7.311 (7.340-7.440); ABG PO2 (T) 71.3 mmHg (75.0-100.0); ALLEN'S TEST Modified; FCOHb 0.3 % (0.0-3.9); FHHb 3.8 % (0.0-5.0); FMetHb 0.3 % (0.0-1.5); FO2Hb 95.6 % (94-97); MODE AC/PC; PATIENT TEMPERATURE 33.7; PEEP 15 cm H2O; RESPIRATORY RATE 16 b/min; TOTAL HEMOGLOBIN 9.9 G/dl (14.0-17.9)
[2023-01-23] MEDS: mupirocin 2% nasal ointment 1gm UD NS SCH (20:14)
--- NOTE | 2023-01-23 20:29 | NUR ---
Notified Dr. wetzel of new labs. Recheck lactic acid in AM, give 2u FFP now. Notified him I turned the pacer off as his underlying is SR with no blocks. On the monitor his P waves are difficult to appreciate but are very clear on the IABP.
[2023-01-23 20:31] LABS: ALANINE AMINOTRANSFERASE 142 U/L (12-78)
[2023-01-23 23:31] LABS: ABG BASE EXCESS -7.8 mmol/L (-2.0-2.0); ABG HCO3 20.2 mmol/L (22.0-26.0); ABG PCO2 (T) 50.2 mmHg (35.0-48.0); ABG PH (T) 7.211 (7.340-7.440); ABG PO2 (T) 61.1 mmHg (75.0-100.0); ALLEN'S TEST Modified; FCOHb 0.1 % (0.0-3.9); FMetHb 0.3 % (0.0-1.5); FO2Hb 91.6 % (94-97); MODE AC/PC; PATIENT TEMPERATURE 35.1; PEEP 15 cm H2O; RESPIRATORY RATE 16 b/min; TOTAL HEMOGLOBIN 8.3 G/dl (14.0-17.9)
[2023-01-23] MEDS: morphine 2 MG/ML inj. syringe IV PRN (23:59)
[2023-01-24] VITALS (41 sets, daily range): BP systolic 67–112; BP diastolic 31–92; PULSE 70–127; RESP 16–38; O2SAT 28–95
[2023-01-24] MEDS: Insulin Reg/NS 100units/100mL 100 ML IV SCH ×3 (00:12→09:28)
[2023-01-24] MEDS: epiNEPHrine inj 5 MG in normal saline 250ml IV soln 245 ML IV SCH ×3 (00:12→07:30)
[2023-01-24] MEDS: ceFAZolin/D5W- 1GM premix 50 ML IV SCH ×3 (00:18→15:40)
[2023-01-24] MEDS: milrinone (Primacor) 20mg/D5W 100 ML IV SCH ×2 (00:39→17:03)
[2023-01-24] MEDS: potassium Cl 20mEq/100mL bag 100 ML IV PRN ×3 (00:46→09:40)
[2023-01-24 01:20] LABS: ALANINE AMINOTRANSFERASE 94 U/L (12-78); ALBUMIN 3.2 G/DL (3.4-5.0); ALBUMIN/GLOBULIN RATIO 1.9 (1.1-1.5); ALKALINE PHOSPHATASE 36 IU/L (46-116); ANION GAP 13 (8-16); ASPARTATE AMINO TRANSFERASE 240 U/L (10-37); BILIRUBIN,TOTAL 1.4 MG/DL (0.1-1.0); BLOOD UREA NITROGEN 24 MG/DL (7-18); BUN/CREATININE RATIO 14.6 (10.0-20.0); CALCIUM 8.3 MG/DL (8.5-10.1); CHLORIDE 115 MMOL/L (99-107); CREATININE 1.64 MG/DL (0.60-1.10); GLUCOSE 198 MG/DL (70-104); MAGNESIUM 2.1 MG/DL (1.5-2.4); PHOSPHORUS 1.8 MG/DL (2.3-4.5); POTASSIUM 3.2 MMOL/L (3.5-5.1); SODIUM 154 MMOL/L (135-145); TOTAL CARBON DIOXIDE 26.1 MMOL/L (24-32); TOTAL PROTEIN 4.9 G/DL (6.4-8.2); eCRCL 31 ML/MIN; eGFR 41 ML/MIN
[2023-01-24 01:28] LABS: BASOPHILS % (AUTO) 0 % (0-1); EOSINOPHILS % (AUTO) 0.1 % (0-6); HEMATOCRIT 29.4 % (42.0-52.0); HEMOGLOBIN 9.8 g/dl (14.0-17.9); LYMPHOCYTES # (AUTO) 0.2 X10'3 (1.1-4.8); LYMPHOCYTES % (AUTO) 1.8 % (21-51); MEAN CORPUSCULAR HGB CONC 33.3 g/dL (33.0-36.5); MEAN PLATELET VOLUME 7.9 FL (7.4-10.4); MONOCYTES # (AUTO) 0.3 X10'3 (0-0.9); MONOCYTES % (AUTO) 3.2 % (2-12); NEUTROPHILS # (AUTO) 9.7 X10'3 (1.8-7.7); NEUTROPHILS % (AUTO) 94.9 % (42-75); PLATELET COUNT 90 X10'3 (140-440); RED BLOOD COUNT 3.27 X10'6 (4.70-6.10); RED CELL DISTRIBUTION WIDTH 14.6 % (11.5-14.5); WHITE BLOOD COUNT 10.2 X10'3 (4.5-11.0)
[2023-01-24 01:49] LABS: APTT 37 SECONDS (22-32); FIBRINOGEN 192 MG/DL (177-424); INR 1.4 INR; PROTHROMBIN TIME 15.2 SECONDS (9.0-12.0)
[2023-01-24] MEDS: potassium Cl 40MEQ/270ML bag 250 ML IV PRN ×2 (01:49→03:53)
[2023-01-24 01:53] LABS: ABG BASE EXCESS -6.8 mmol/L (-2.0-2.0); ABG HCO3 21.2 mmol/L (22.0-26.0); ABG OXYGEN SATURATION 93.9 % (94-97); ABG PCO2 (T) 53.8 mmHg (35.0-48.0); ABG PH (T) 7.211 (7.340-7.440); ABG PO2 (T) 72.7 mmHg (75.0-100.0); ALLEN'S TEST Modified; FHHb 6.1 % (0.0-5.0); FMetHb 0.3 % (0.0-1.5); FO2Hb 93.6 % (94-97); MODE AC/PC; PATIENT TEMPERATURE 36.6; PEEP 15 cm H2O; RESPIRATORY RATE 16 b/min; TOTAL HEMOGLOBIN 10.8 G/dl (14.0-17.9)
[2023-01-24] MEDS: albumin (Human) 5% 250ml 250 ML IV PRN ×3 (01:57→15:32)
--- NOTE | 2023-01-24 02:13 | NUR ---
Updated Dr. Rodas with all morning labs and vitals. He'd like to give a unit of cryo and increase the RR on the vent for now. Also stated it was OK to keep giving Albumin 5% 250ml one at a time, if HGB goes below 8 give 1 PRBC.
[2023-01-24] MEDS ORDERED: albumin (Human) 5% 250ml 250 ML IV ONE ×2 (03:55→15:30)
--- NOTE | 2023-01-24 04:12 | NUR ---
Unfortunately the scanner in the room was not working well and taking multiple attempts to get it to scan things, due to the critical nature of the pt and needing to give therapies quickly I did not scan medications in, all medications were double checked by charge lpn.
[2023-01-24 05:09] LABS: BASOPHILS % (AUTO) 0.4 % (0-1); EOSINOPHILS % (AUTO) 0 % (0-6); HEMATOCRIT 25.7 % (42.0-52.0); HEMOGLOBIN 8.7 g/dl (14.0-17.9); LYMPHOCYTES # (AUTO) 0.1 X10'3 (1.1-4.8); LYMPHOCYTES % (AUTO) 1.1 % (21-51); MEAN CORPUSCULAR HEMOGLOBIN 30.4 PG (27.0-31.0); MEAN CORPUSCULAR VOLUME 89.5 FL (78-98); MEAN PLATELET VOLUME 8.1 FL (7.4-10.4); MONOCYTES # (AUTO) 0.5 X10'3 (0-0.9); MONOCYTES % (AUTO) 4.8 % (2-12); NEUTROPHILS # (AUTO) 10.5 X10'3 (1.8-7.7); NEUTROPHILS % (AUTO) 93.7 % (42-75); PLATELET COUNT 82 X10'3 (140-440); RED BLOOD COUNT 2.87 X10'6 (4.70-6.10); RED CELL DISTRIBUTION WIDTH 14.8 % (11.5-14.5); WHITE BLOOD COUNT 11.2 X10'3 (4.5-11.0)
[2023-01-24] MEDS: morphine 2 MG/ML inj. syringe IV PRN (05:42)
--- NOTE | 2023-01-24 06:22 | NUR ---
OK to leave augmentation at 1:[address] Rod[address]
--- NOTE | 2023-01-24 07:03 | NUR ---
RN called Dr. Rodas re. augemented BP 77 and Epi at 0.4 and Primacor 0.4. Stated to give blood and turn IABP to 1:1.
[2023-01-24 07:07] LABS: ACT @ 1.70 U 307 SEC (193-297); ACT @ 2.84 U 431 SEC (260-420); BASELINE ACT 149 SEC (101-148); PATIENT WEIGHT 60.0k KG
[2023-01-24 07:20] LABS: ABG OXYGEN SATURATION 75.4 % (94-97); ABG PCO2 (T) 63.8 mmHg (35.0-48.0); ABG PH (T) 7.108 (7.340-7.440); ABG PO2 (T) 40.7 mmHg (75.0-100.0); FCOHb 0.1 % (0.0-3.9); FHHb 24.5 % (0.0-5.0); FMetHb 0.3 % (0.0-1.5); FO2Hb 75.1 % (94-97); MODE VENT - P/C; PATIENT TEMPERATURE 36.1; PEEP 15 cm H2O; RESPIRATORY RATE 20 b/min; TIDAL VOLUME 260 mL; TOTAL HEMOGLOBIN 10.6 G/dl (14.0-17.9)
[2023-01-24] MEDS: mupirocin 2% nasal ointment 1gm UD NS SCH ×2 (07:30→20:22)
[2023-01-24] MEDS: metoprolol tartrate 12.5mg (1/2 tablet) PO SCH ×2 (07:39→20:00)
[2023-01-24] MEDS: sennosides/docusate sodium tablet PO SCH ×2 (07:39→20:00)
[2023-01-24] MEDS: vancomycin/NS 1 GM ADD-VANTAGE 250 ML IV SCH ×2 (07:57→20:22)
[2023-01-24 08:00] LABS: ABG BASE EXCESS -7.4 mmol/L (-2.0-2.0); ABG HCO3 22.5 mmol/L (22.0-26.0); ABG OXYGEN SATURATION 82.7 % (94-97); ABG PCO2 (T) 67.5 mmHg (35.0-48.0); ABG PH (T) 7.135 (7.340-7.440); ABG PO2 (T) 45.9 mmHg (75.0-100.0); FCOHb 0.2 % (0.0-3.9); FHHb 17.2 % (0.0-5.0); FMetHb 0.3 % (0.0-1.5); FO2Hb 82.3 % (94-97); MODE VENT - AC; PEEP 15 cm H2O; RESPIRATORY RATE 20 b/min; TIDAL VOLUME 20 mL
[2023-01-24] MEDS ORDERED: furosemide 20 MG/2 ML vial IV ONE (08:00)
[2023-01-24 08:21] LABS: ABG BASE EXCESS -7.5 mmol/L (-2.0-2.0); ABG HCO3 21.3 mmol/L (22.0-26.0); ABG OXYGEN SATURATION 90.1 % (94-97); ABG PCO2 (T) 56.6 mmHg (35.0-48.0); ABG PH (T) 7.187 (7.340-7.440); ABG PO2 (T) 55.4 mmHg (75.0-100.0); FCOHb 0.1 % (0.0-3.9); FHHb 9.9 % (0.0-5.0); FMetHb 0.3 % (0.0-1.5); FO2Hb 89.7 % (94-97); MODE VENT - AC; PEEP 15 cm H2O; RESPIRATORY RATE 20 b/min; TIDAL VOLUME 420 mL
[2023-01-24 08:26] LABS: ALBUMIN 3.5 G/DL (3.4-5.0); ANION GAP 15 (8-16); BLOOD UREA NITROGEN 29 MG/DL (7-18); CALCIUM 8.3 MG/DL (8.5-10.1); CHLORIDE 117 MMOL/L (99-107); GLUCOSE 151 MG/DL (70-104); MAGNESIUM 2.4 MG/DL (1.5-2.4)
--- NOTE | 2023-01-24 08:26 | NUR ---
Dr. Rodas here at [address] [place] Aware of low urine output,Epi and Primaor gtt rates, CT output (minimal to none), latest labs are pending.
[2023-01-24] MEDS ORDERED: aspirin 81mg tab.chew PO SCH (08:30)
[2023-01-24 08:35] LABS: SODIUM 155 MMOL/L (135-145)
--- NOTE | 2023-01-24 08:37 | NUR ---
Na 155. Dr. Rodas aware.
[2023-01-24] MEDS ORDERED: EPINEPHRINE IV SCH (08:40)
[2023-01-24] MEDS ORDERED: DEXTROSE 5% IV SCH (08:40)
[2023-01-24] MEDS ORDERED: WATER IV SCH (08:40)
--- NOTE | 2023-01-24 08:42 | NUR ---
EEG ordered, tech paged and aware of new order.
[2023-01-24 08:58] LABS: BUN/CREATININE RATIO 14.8 (10.0-20.0); CREATININE 1.96 MG/DL (0.60-1.10); eCRCL 26 ML/MIN; eGFR 33 ML/MIN
[2023-01-24] MEDS ORDERED: epiNEPHrine inj 5 MG in normal saline 250ml IV soln 245 ML IV SCH (09:00)
[2023-01-24 09:05] LABS: BASOPHILS % (AUTO) 0 % (0-1); EOSINOPHILS % (AUTO) 0.1 % (0-6); HEMATOCRIT 29.8 % (42.0-52.0); LYMPHOCYTES # (AUTO) 0.2 X10'3 (1.1-4.8); LYMPHOCYTES % (AUTO) 1.2 % (21-51); MEAN CORPUSCULAR HEMOGLOBIN 30.6 PG (27.0-31.0); MEAN CORPUSCULAR HGB CONC 33.7 g/dL (33.0-36.5); MEAN CORPUSCULAR VOLUME 90.6 FL (78-98); MEAN PLATELET VOLUME 8.7 FL (7.4-10.4); MONOCYTES # (AUTO) 0.7 X10'3 (0-0.9); NEUTROPHILS # (AUTO) 11.5 X10'3 (1.8-7.7); NEUTROPHILS % (AUTO) 92.7 % (42-75); PLATELET COUNT 83 X10'3 (140-440); RED BLOOD COUNT 3.28 X10'6 (4.70-6.10); RED CELL DISTRIBUTION WIDTH 15.2 % (11.5-14.5); WHITE BLOOD COUNT 12.4 X10'3 (4.5-11.0)
--- NOTE | 2023-01-24 09:13 | NUR ---
Pt's and dtr. at bedside.
[2023-01-24] MEDS: magnesium 2GM in 50ml NS 50 ML IV PRN ×2 (09:32)
--- NOTE | 2023-01-24 09:43 | NUR ---
Augmented pressure 86, was 100. Dr. Rodas aware. Ordered to start Levo to keep CI >2.5
[2023-01-24] MEDS ORDERED: NORepinephrine 1 mg/ml inj IV ONE (09:45)
[2023-01-24] MEDS: NORepinephrine inj. 8 MG in dextrose 5%-water 242 ML IV SCH ×2 (09:51→22:33)
[2023-01-24 10:04] LABS: ABG BASE EXCESS -6.4 mmol/L (-2.0-2.0); ABG HCO3 20.4 mmol/L (22.0-26.0); ABG OXYGEN SATURATION 93.8 % (94-97); ABG PCO2 (T) 45.9 mmHg (35.0-48.0); ABG PH (T) 7.265 (7.340-7.440); FCOHb 0.2 % (0.0-3.9); FHHb 6.2 % (0.0-5.0); FMetHb 0.3 % (0.0-1.5); FO2Hb 93.3 % (94-97); MODE VENT - AC; PEEP 15 cm H2O; RESPIRATORY RATE 20 b/min; TOTAL HEMOGLOBIN 11.2 G/dl (14.0-17.9)
--- NOTE | 2023-01-24 10:08 | NUR ---
Dr. Garcia here for nephrology consult.
[2023-01-24 11:01] LABS: ABG PCO2 65.8 mmHg (35.0-48.0)
[2023-01-24 11:02] LABS: ABG PCO2 66.6 mmHg (35.0-48.0); ABG PH 7.112 (7.340-7.440)
--- NOTE | 2023-01-24 11:15 | NUR ---
EEG set up.
--- NOTE | 2023-01-24 11:20 | NUR ---
Initial: Pt s/p AVR after failed TAVR attempt s/p cardiac arrest with prolonged CPR of which chest was opened at bedside during CPR and taken to OR emergent per MD note. Pt remains intubated since yesterday 01/23 per EMR. Pt is currently NPO though prior was on heart healthy vegetarian with great appetite, average intake of 92% x 6 meals including 100% for 5 meals. Pt presents with a low christy score of 10 per EMR. Per RN physical assessment pt has a dry and intact surgical wound to right left groin not warranting a wound care consult at this time. LBM on 01/22 with routine Senna though currently held for NPO. Will continue to monitor and make recommendations as appropriate. Recommendations: 1. IF TF continuous Vital AF at 70ml/hr goal rate. Begin at 30ml/hr and advance by 20ml Q8H as tolerated to goal rate. Once at goal to provide 1680ml total volume/day, 2016kcals, 126g of protein, and 1362ml of water. 2. IF TF 110ml water flushes Q4H; monitor serum Na 3. IF TF prealbumin q Tuesday/ 4. IF TF daily scaled wts 5. Routine bowel care 6. Following extubation advance diet as medically appropriate to heart healthy vegetarian Addendum: 01/24/23 at [address] Amended: Links added.
[2023-01-24] MEDS: EPINEPHRINE IV SCH ×3 (11:23→20:59)
[2023-01-24] MEDS: DEXTROSE 5% IV SCH ×3 (11:23→20:59)
[2023-01-24] MEDS: WATER IV SCH ×3 (11:23→20:59)
--- NOTE | 2023-01-24 11:46 | NUR ---
[place] fast placed on ETT per RT as pt. has clamped down and bleeding noted from mouth.
[2023-01-24 11:58] LABS: BILIRUBIN,URINE NEGATIVE (Neg); CLARITY,URINE CLOUDY (Clear); COLOR,URINE YELLOW (Yellow); GLUCOSE, URINE NEGATIVE (Neg); KETONES,URINE 15 mg/dl (Neg); LEUKOCYTE ESTERASE ,URINE NEGATIVE (Neg); NITRITES, URINE NEGATIVE (Neg); OCCULT BLOOD,URINE MODERATE (Neg); PROTEIN,URINE 100 mg/dl (Neg); UROBILINOGEN,URINE 0.2 E.U/dL (0.2-1.0)
[2023-01-24 12:26] LABS: UA COLLECTION TYPE FOLEY CATH
[2023-01-24 12:28] LABS: BACTERIA,URINE 2+ /HPF (Neg); SQUAMOUS EPITHELIAL CELL,UR NONE SEEN /LPF (FEW); WBC,URINE 0-4 /HPF (0-4)
[2023-01-24 13:11] LABS: UA EOSINOPHILS NO EOS /HPF
--- NOTE | 2023-01-24 13:48 | NUR ---
BIS placed on pt.= 71. Dr. Michelle here. Family here. Addendum: 01/24/23 at 1414 by Tegan Cobb RN BIS placed on pt because some rhythmic movement was noted at pt's tongue, right hand.
--- NOTE | 2023-01-24 14:39 | NUR ---
The following was taken from the patients H&P: This Pt. is a 77 year old male presents for transcathereter aortic valve replacement surgery. Diagnosis: AV stenosis/SOB/carotid stenosis. Transcathereter aortic valvuloplasty surgery on 01/20/23 and 01/23/23. His most recent lab shows: WBC 11.2, HGB 8.7, BUN 29, BG 151, and albumin 3.5. Chest x-rays shows postsurgical changes. Pt. is admitted for the management of valve replacement surgery. Wound care in for skin assessment secondary to low Moreno score. At Pt. bedside with primary nurse to discuss Pt. Primary nurse reports that Pt. cannot be turned or moved today due to present condition. Discussed with primary nurse that wound care will be available.
--- NOTE | 2023-01-24 17:00 | NUR ---
24 hour EEG started now.
[2023-01-24] MEDS ORDERED: mineral oil/petrolatum ophthal oint EACHEYE PRN (17:30)
[2023-01-24 19:00] LABS: ABG BASE EXCESS -6.1 mmol/L (-2.0-2.0); ABG HCO3 20.3 mmol/L (22.0-26.0); ABG OXYGEN SATURATION 89.3 % (94-97); ABG PCO2 (T) 44.2 mmHg (35.0-48.0); ABG PH (T) 7.281 (7.340-7.440); ABG PO2 (T) 55.7 mmHg (75.0-100.0); FCOHb 0.3 % (0.0-3.9); FHHb 10.6 % (0.0-5.0); FMetHb 0.3 % (0.0-1.5); FO2Hb 88.8 % (94-97); MODE VENT - P/C; PATIENT TEMPERATURE 37.3; PEEP 15 cm H2O; RESPIRATORY RATE 24 b/min; TOTAL HEMOGLOBIN 11.2 G/dl (14.0-17.9)
[2023-01-24 19:04] LABS: BASOPHILS % (AUTO) 0.1 % (0-1); EOSINOPHILS % (AUTO) 0.1 % (0-6); HEMATOCRIT 30.7 % (42.0-52.0); HEMOGLOBIN 10.5 g/dl (14.0-17.9); LYMPHOCYTES # (AUTO) 0.4 X10'3 (1.1-4.8); LYMPHOCYTES % (AUTO) 2.2 % (21-51); MEAN CORPUSCULAR HEMOGLOBIN 30.3 PG (27.0-31.0); MEAN CORPUSCULAR HGB CONC 34.2 g/dL (33.0-36.5); MEAN CORPUSCULAR VOLUME 88.7 FL (78-98); MEAN PLATELET VOLUME 9.5 FL (7.4-10.4); MONOCYTES # (AUTO) 1.7 X10'3 (0-0.9); NEUTROPHILS # (AUTO) 16.6 X10'3 (1.8-7.7); NEUTROPHILS % (AUTO) 88.6 % (42-75); PLATELET COUNT 72 X10'3 (140-440); RED BLOOD COUNT 3.46 X10'6 (4.70-6.10); RED CELL DISTRIBUTION WIDTH 15.1 % (11.5-14.5); WHITE BLOOD COUNT 18.8 X10'3 (4.5-11.0)
[2023-01-24 19:15] LABS: APTT 37 SECONDS (22-32); INR 1.2 INR; PROTHROMBIN TIME 13.2 SECONDS (9.0-12.0)
[2023-01-24 19:16] LABS: ALANINE AMINOTRANSFERASE 32 U/L (12-78); ALBUMIN 3.2 G/DL (3.4-5.0); ALBUMIN/GLOBULIN RATIO 1.9 (1.1-1.5); ALKALINE PHOSPHATASE 34 IU/L (46-116); ANION GAP 13 (8-16); ASPARTATE AMINO TRANSFERASE 208 U/L (10-37); BILIRUBIN,TOTAL 1.2 MG/DL (0.1-1.0); BLOOD UREA NITROGEN 36 MG/DL (7-18); BUN/CREATININE RATIO 14.2 (10.0-20.0); CALCIUM 8.2 MG/DL (8.5-10.1); CHLORIDE 114 MMOL/L (99-107); CREATININE 2.54 MG/DL (0.60-1.10); GLUCOSE 129 MG/DL (70-104); MAGNESIUM 2.7 MG/DL (1.5-2.4); SODIUM 150 MMOL/L (135-145); TOTAL CARBON DIOXIDE 23.2 MMOL/L (24-32); TOTAL PROTEIN 4.9 G/DL (6.4-8.2); eCRCL 20 ML/MIN; eGFR 25 ML/MIN
[2023-01-24 19:55] LABS: NUCLEATED RED BLOOD CELLS 2 /100WBC (0-0); TOTAL CELLS COUNTED 100
[2023-01-24 19:56] LABS: ANISOCYTOSIS 1+; PLATELET ESTIMATE DECREASED
[2023-01-24 19:57] LABS: ELLIPTOCYTES FEW; POLYCHROMASIA FEW; TEAR DROP CELLS FEW
--- NOTE | 2023-01-24 19:58 | NUR ---
Informed Dr Rodas of recent labs, shahida goodwin Md ordered to turn off milrone and do not increase epi gtt without calling
[2023-01-24] MEDS: atorvastatin 10mg tablet PO SCH (20:24)
[2023-01-24] MEDS ORDERED: albuterol 2.5 MG/3 ML nebule CONTNEB PRN (20:50)
[2023-01-24] MEDS ORDERED: insulin regular, human U-100 3ml vial - multi-dose IV ONE (20:50)
[2023-01-24] MEDS ORDERED: dextrose 50%-water 50ml dispensing syringe IV ONE (20:50)
--- NOTE | 2023-01-24 21:08 | NUR ---
Jack Hassan called, updated him on pts condition, reviewed current lab results and vasoactive medication rates. Per his request he does not want dialysis started on this father in law. He states the pt would not want it. Also per his request if there are any negative changes we will call him to update him.
--- NOTE | 2023-01-24 21:40 | NUR ---
informed Dr. wetzel of current gtt rates. orders rec for q2hour abg, RT notified
[2023-01-24 22:09] LABS: ABG BASE EXCESS -8.1 mmol/L (-2.0-2.0); ABG HCO3 18.8 mmol/L (22.0-26.0); ABG OXYGEN SATURATION 86.3 % (94-97); ABG PCO2 (T) 44.2 mmHg (35.0-48.0); ABG PH (T) 7.248 (7.340-7.440); ABG PO2 (T) 51.6 mmHg (75.0-100.0); FCOHb 0.6 % (0.0-3.9); FHHb 13.6 % (0.0-5.0); FMetHb 0.3 % (0.0-1.5); FO2Hb 85.5 % (94-97); MODE VENT - P/C; PATIENT TEMPERATURE 37.3; PEEP 15 cm H2O; RESPIRATORY RATE 28 b/min; TOTAL HEMOGLOBIN 11.6 G/dl (14.0-17.9)
[2023-01-24] MEDS ORDERED: sodium bicarbonate (8.4%) 1 mEq/ml syringe IV ONE (22:15)
[2023-01-24] MEDS ORDERED: sodium bicarbonate (8.4%) 1 mEq/ml syringe ONE (22:17)
--- NOTE | 2023-01-24 22:43 | NUR ---
noted pt has weak corneal reflex pupils still 2 very sluggish reaction
[2023-01-24] MEDS ORDERED: calcium chloride 100 MG/1 ML inj IV ONE ×2 (23:06→23:52)
--- NOTE | 2023-01-24 23:13 | NUR ---
notifed md of recent vs and CO/CI, and frequent pauses in heart rhythm
--- NOTE | 2023-01-24 23:24 | NUR ---
pt's heart rate down to 80-90's with frequent pauses, missed beats, and frequent pvcs. midnight labs sent
[2023-01-24 23:31] LABS: ABG BASE EXCESS -7.9 mmol/L (-2.0-2.0); ABG HCO3 18.5 mmol/L (22.0-26.0); ABG OXYGEN SATURATION 86.9 % (94-97); ABG PCO2 (T) 42.9 mmHg (35.0-48.0); ABG PH (T) 7.258 (7.340-7.440); ABG PO2 (T) 55.3 mmHg (75.0-100.0); FHHb 13.1 % (0.0-5.0); FMetHb 0.3 % (0.0-1.5); FO2Hb 86.6 % (94-97); MODE AC/PC; PEEP 15 cm H2O; RESPIRATORY RATE 28 b/min; TOTAL HEMOGLOBIN 11.6 G/dl (14.0-17.9)
[2023-01-24 23:36] LABS: BASOPHILS % (AUTO) 0 % (0-1); EOSINOPHILS # (AUTO) 0.1 X10'3 (0-0.9); EOSINOPHILS % (AUTO) 0.2 % (0-6); HEMATOCRIT 32.4 % (42.0-52.0); HEMOGLOBIN 10.8 g/dl (14.0-17.9); LYMPHOCYTES # (AUTO) 0.4 X10'3 (1.1-4.8); MEAN CORPUSCULAR HEMOGLOBIN 29.8 PG (27.0-31.0); MEAN CORPUSCULAR HGB CONC 33.5 g/dL (33.0-36.5); MEAN PLATELET VOLUME 9.2 FL (7.4-10.4); MONOCYTES # (AUTO) 1.7 X10'3 (0-0.9); MONOCYTES % (AUTO) 8.1 % (2-12); NEUTROPHILS # (AUTO) 19.3 X10'3 (1.8-7.7); NEUTROPHILS % (AUTO) 89.7 % (42-75); PLATELET COUNT 71 X10'3 (140-440); RED BLOOD COUNT 3.64 X10'6 (4.70-6.10); RED CELL DISTRIBUTION WIDTH 15.4 % (11.5-14.5); WHITE BLOOD COUNT 21.6 X10'3 (4.5-11.0)
--- NOTE | 2023-01-24 23:37 | NUR ---
notifed md of pt's change in heart rhythm, md order to tourn pacer up in rate. Called family and they are on their way in
[2023-01-24 23:45] LABS: INR 1.3 INR; PROTHROMBIN TIME 13.9 SECONDS (9.0-12.0)
[2023-01-24] MEDS ORDERED: Dextrose 10%-water IV solution 1,000 ML IV SCH (23:45)
[2023-01-24 23:48] LABS: ALANINE AMINOTRANSFERASE 32 U/L (12-78); ALBUMIN 3.1 G/DL (3.4-5.0); ALBUMIN/GLOBULIN RATIO 1.8 (1.1-1.5); ALKALINE PHOSPHATASE 37 IU/L (46-116); ANION GAP 15 (8-16); ASPARTATE AMINO TRANSFERASE 219 U/L (10-37); BILIRUBIN,TOTAL 1.3 MG/DL (0.1-1.0); BLOOD UREA NITROGEN 39 MG/DL (7-18); BUN/CREATININE RATIO 13.3 (10.0-20.0); CALCIUM 8.2 MG/DL (8.5-10.1); CHLORIDE 112 MMOL/L (99-107); CREATININE 2.93 MG/DL (0.60-1.10); GLUCOSE 167 MG/DL (70-104); MAGNESIUM 2.9 MG/DL (1.5-2.4); PHOSPHORUS 5.2 MG/DL (2.3-4.5); SODIUM 147 MMOL/L (135-145); TOTAL CARBON DIOXIDE 20.2 MMOL/L (24-32); TOTAL PROTEIN 4.8 G/DL (6.4-8.2); eCRCL 17 ML/MIN; eGFR 21 ML/MIN
[2023-01-24 23:53] LABS: POTASSIUM 6.8 MMOL/L (3.5-5.1)
--- NOTE | 2023-01-24 23:55 | NUR ---
MD and family at bedside. discussion regarding making pt comfort care. emotional support given to family. decision made to make comfort care
[2023-01-24] MEDS ORDERED: albumin (human) 25% 100ml IV 200 ML IV ONE (23:58)
[2023-01-25] MEDS ORDERED: albumin (human) 25% 100 ML IV solution IV ONE ×2
[2023-01-25] MEDS ORDERED: insulin regular, human 10 units/0.1 ml syringe IV ONE
[2023-01-25] MEDS ORDERED: insulin regular, human U-100 3ml vial - multi-dose IV ONE (00:10)
--- NOTE | 2023-01-25 00:15 | NUR ---
Spoke to Dr. Rodas Family has decided to make pt comfort care, ok to extubate pt to comfort care
--- NOTE | 2023-01-25 01:55 | NUR ---
RN IS TO DOCUMENT YES TO ALL APPLICABLE AREAS Pronouncement of :27 1. Time Physician Notified:39 2. Date of :01/25/2023 3. Time of : 27 4. DNR/Withdraw life support documented:yes 5. Monitor strip has been placed on chart:yes 6. Assessment process is of one-minute duration and includes following criteria: a) Patient is unresponsive to all stimuli: b) Pupils fixed and non-reactive: c) Auscultation of precordium reveals absence of heart tones: d) Auscultation of lungs reveals absence of breath sounds: e) Absence of blood pressure / all vital signs: f) QRS complexes are not present on monitor / EKG strip: g) Pacer spikes without capture: 4. Comments: family at bedside
[2023-01-25 01:58] VITALS: BP 102/51; PULSE 124; RESP 28; O2SAT 90
[2023-01-25] MEDS ORDERED: DEXTROSE 5% IV SCH (02:00)
[2023-01-25] MEDS ORDERED: NOREPINEPHRINE IV SCH (02:00)
[2023-01-25] MEDS ORDERED: WATER IV SCH (02:00)
[2023-01-25] MEDS ORDERED: pantoprazole 40mg Tablet.DR PO SCH (07:30)
== END 2023-01-25 02:36 | DRG 219 ==
LOC: PAS IN 05:30 → PCU 3S 19:00 → ICU 2S 01-23 07:00
PROVIDERS: ADMIT Internal Medicine Cardiovascular Disease; ATTEND Internal Medicine Cardiovascular Disease
PROC: 027F3ZZ Dilation of Aortic Valve, Percutaneous Approach (ICD-10-PCS; 2023-01-20)
PROC: B41F1ZZ Fluoroscopy of Right Lower Extremity Arteries using Low Osmolar Contrast (ICD-10-PCS; 2023-01-20)
PROC: B41G1ZZ Fluoroscopy of Left Lower Extremity Arteries using Low Osmolar Contrast (ICD-10-PCS; 2023-01-20)
PROC: B3101ZZ Fluoroscopy of Thoracic Aorta using Low Osmolar Contrast (ICD-10-PCS; 2023-01-20)
PROC: 5A02210 Assistance with Cardiac Output using Balloon Pump, Continuous (ICD-10-PCS; 2023-01-23)
PROC: 0WJC0ZZ Inspection of Mediastinum, Open Approach (ICD-10-PCS; 2023-01-23)
PROC: 5A1221Z Performance of Cardiac Output, Continuous (ICD-10-PCS; 2023-01-23)
PROC: 04HY32Z Insertion of Monitoring Device into Lower Artery, Percutaneous Approach (ICD-10-PCS; 2023-01-23)
PROC: 03HY32Z Insertion of Monitoring Device into Upper Artery, Percutaneous Approach (ICD-10-PCS; 2023-01-23)
PROC: 0W9930Z Drainage of Right Pleural Cavity with Drainage Device, Percutaneous Approach (ICD-10-PCS; 2023-01-23)
PROC: 30233K1 Transfusion of Nonautologous Frozen Plasma into Peripheral Vein, Percutaneous Approach (ICD-10-PCS; 2023-01-23)
PROC: 30233N1 Transfusion of Nonautologous Red Blood Cells into Peripheral Vein, Percutaneous Approach (ICD-10-PCS; 2023-01-23)
PROC: 30233R1 Transfusion of Nonautologous Platelets into Peripheral Vein, Percutaneous Approach (ICD-10-PCS; 2023-01-23)
PROC: 30233M1 Transfusion of Nonautologous Plasma Cryoprecipitate into Peripheral Vein, Percutaneous Approach (ICD-10-PCS; 2023-01-23)
PROC: 02RF08Z Replacement of Aortic Valve with Zooplastic Tissue, Open Approach (ICD-10-PCS; principal; 2023-01-23 07:54)
DX: I35.0 Nonrheumatic aortic (valve) stenosis (principal); J80 Acute respiratory distress syndrome; N17.0 Acute kidney failure with tubular necrosis; G93.1 Anoxic brain damage, not elsewhere classified; E87.0 Hyperosmolality and hypernatremia; E87.20 Acidosis, unspecified; I46.9 Cardiac arrest, cause unspecified; E86.1 Hypovolemia; M45.9 Ankylosing spondylitis of unspecified sites in spine; R57.0 Cardiogenic shock; Z88.8 Allergy status to other drugs, medicaments and biological substances; Z79.899 Other long term (current) drug therapy; Z88.2 Allergy status to sulfonamides; Z87.11 Personal history of peptic ulcer disease; Z95.3 Presence of xenogenic heart valve
CPT/HCPCS: 0232T; 92950; 92986; 93308; 36415; 36430; 36600; 71045; 71046; 76937; 80048; 80053; 81001; 82330; 82435; 82570; 82803; 82947; 82948; 83036; 83605; 83735; 83880; 84100; 84132; 84156; 84295; 84300; 85007; 85018; 85025; 85027; 85347; 85384; 85610; 85730; 86880; 86885; 86900; 86901; 86920; 87081; 87207; 93005; 93970; 94002; 94003; 94010; 94640; 94760; 95720; 95816; 97161; 97530; A4615; A4618; A6250; A6258; A6402; A6449; A7000; A7015; A7048; C1725; C1751; C1756; C1760; C1769; C1884; C1894; G0378; J0171; J0360; J0690; J1265; J1644; J1815; J1940; J2060; J2250; J2260; J2270; J2370; J2704; J2720; J3010; J3370; J3475; J3480; J3490; J7030; J7040; J7050; J7060; J7120; P9012; P9016; P9035; P9045; P9047; P9059; Q9967